=== PATIENT | male | born 1950 | race Caucasian/White ===

== ENCOUNTER → 2019-03-13 13:44 | Outpatient (CLI) | payer MEDICARE, OTHER, SELFPAY ==
[2019-03-13 14:03] LABS: Bacteria Urine None Seen; RBC Urine None Seen (0-5/HPF)
[2019-03-13 14:34] LABS: Add Manual Diff / Slide Review NO; Basophils Absolute Auto 0 /uL (0-100); Basophils Percent Auto 0.4 % (0-2); Eosinophils Absolute Auto 100 /uL (0-450); Eosinophils Percent Auto 1.9 % (2-4); Hematocrit 51.4 % (41-53); Hemoglobin 16.8 g/dL (13.5-17.5); Lymphocytes Absolute Auto 1900 /uL (1100-4500); Lymphocytes Percent Auto 25.4 % (25-40); Mean Corpuscular HGB Conc 32.6 % (30-36); Mean Corpuscular Hemoglobin 31.4 PG (26-34); Mean Corpuscular Volume 96.2 fL (80-100); Monocytes Absolute Auto 700 /uL (0-900); Monocytes Percent Auto 8.7 % (3-14); Neutrophils Absolute Auto 4800 /uL (1500-7000); Neutrophils Percent Auto 63.6 % (50-75); Platelet Count 197 X10^3/uL (150-400); Red Blood Cell Count 5.35 X10^6/uL (4.5-5.9); Red Cell Distribution Width 14.5 % (11.6-14.8); White Blood Cell Count 7.5 X10^3/uL (4.5-11.0)
[2019-03-13 14:52] LABS: Hemoglobin A1C% w Est Avg Glu 5.4 % (4.0-6.0)
[2019-03-13 15:16] LABS: Appearance Urine UA CLEAR; Bilirubin Urine UA NEGATIVE (NEGATIVE); Color Urine UA YELLOW; Glucose Urine UA NEGATIVE (Negative); Ketones Urine UA NEGATIVE (NEGATIVE); Leukocyte Esterase Urine UA NEGATIVE (NEGATIVE); Nitrite Urine UA NEGATIVE (Negative); Occult Blood Urine UA NEGATIVE (Negative); Protein Urine UA NEGATIVE (Negative); Urobilinogen Urine UA 0.2 E.U./dL (0.2)
[2019-03-13 15:37] LABS: Squamous Epithelial Cell Urine 0-1 /HPF (0-5/HPF)
[2019-03-13 15:38] LABS: Culture Indicated Urine Cult Not Indicated; WBC Urine 0-1/HPF (0-5/HPF)
[2019-03-13 15:56] LABS: BUN Creatinine Ratio 17.3 (6-22); Blood Urea Nitrogen 19 mg/dL (9-20); Calcium 9.2 mg/dL (8.4-10.2); Carbon Dioxide 29 mmol/L (22-32); Chloride 97 mmol/L (98-107); Estimated Glomerular Filt Rate > 60.0 mL/min (>60); Glucose 84 mg/dL (80-110); HEMOLYSIS < 15 (0-50); Potassium 4.1 mmol/L (3.4-5.1); Sodium 137 mmol/L (137-145)
== END ==
PROVIDERS: PCP Internal Medicine; Visit Provider Orthopaedic Surgery
DX: Z01.818 Encounter for other preprocedural examination (principal); Z01.812 Encounter for preprocedural laboratory examination; N39.9 Disorder of urinary system, unspecified; Z13.1 Encounter for screening for diabetes mellitus; R73.9 Hyperglycemia, unspecified
CPT/HCPCS: 36415; 80048; 81001; 83036; 85025

== ENCOUNTER 2019-04-28 06:05 | Inpatient (IN) | payer MEDICARE, OTHER, SELFPAY ==
[2019-04-22 09:42] VITALS: BMI 34.8
[2019-04-28] VITALS (12 sets, daily range): BP systolic 108–150; BP diastolic 58–82; PULSE 45–63; RESP 10–18; TEMP 35.3–36.7; O2SAT 96–100; BMI 34.8
--- NOTE | 2019-04-28 | DI.RAD.S_ITS ---
PROCEDURE: XR PELVIS 1-2V INDICATIONS: INNER OP PIC TECHNIQUE: Intra-operative view of the pelvis and hip acquired. COMPARISON: None. FINDINGS: Bones: Intraoperative devices prior to placement of arthroplasty prostheses are in expected positions. No fractures or suspicious bony lesions. Soft tissues: Overlying surgical retractors are present, along with other intraoperative changes. IMPRESSION: Intraoperative device in appropriate position. Dictated by: Nena Sargent M.D. on 04/28/2019 at 11:53 Approved by: Nena Sargent M.D. on 04/28/2019 at 11:53
--- NOTE | 2019-04-28 06:00 | DI.RAD.S_ITS ---
PROCEDURE: XR HIP W PEL IF DONE RT 2V INDICATIONS: POST OPERATIVE RIGHT HIP TECHNIQUE: AP pelvis and lateral view of the right hip acquired. COMPARISON: [facility], [place], XR PELVIS 1-2V, 04/28/2019, 9:15. FINDINGS: Bones: Patient is status post right hip arthroplasty, with hardware components in expected positions. The hip joint appears congruent. The visualized bony structures appear intact. Soft tissues: Overlying postoperative changes are noted. No suspicious soft tissue densities. IMPRESSION: Right hip arthroplasty in anatomic alignment. Dictated by: Nena Sargent M.D. on 04/28/2019 at 14:09 Approved by: Nena Sargent M.D. on 04/28/2019 at 14:10
[2019-04-28] MEDS: PREGABALIN 75 MG CAPSULE PO (06:57)
[2019-04-28] MEDS: ACETAMINOPHEN 325 MG TABLET 975 MG PO ×3 (07:37→20:21)
--- NOTE | 2019-04-28 07:42 | PM.PREOP ---
Pre-operative Note Interval Note History & Physical reviewed/Exam performed by Physician: Yes Changes to H&P: No
--- NOTE | 2019-04-28 07:48 | P.OP_ITS ---
Operative Date/Time/Diagnoses Date of procedure: 04/28/19 Time of procedure: 07:58 Pre-op diagnosis: right hip OA Post-op diagnosis: same Procedure & Clinicians Procedure: Right total hip arthroplasty Same procedure as scheduled: Yes Indications: The patient has had progressively worsening right hip pain with radiographic changes consistent with arthritis. Non-operative management has failed and the patient has requested total hip replacement. The risks, benefits and alternatives to surgery were discussed with the patient prior to proceeding. Risks discussed included, but were not limited to, failure to relieve pain, leg length discrepancy, dislocation, stiffness, infection, nerve damage, deep venous thrombosis, pulmonary embolism, stroke, coma, heart attack, permanent paralysis and , as well as the potential need for eventual revision of the prosthetic. Surgeon: Shyanne Man Structural Shop Helper: Enedina Eli Anesthesia Type: Spinal Operative Notes Findings: Severe right hip arthritis, soft bone, avascular necrosis with some component of collapse Closure Type: primary Specimen(s): none sent Prosthetic devices, grafts, tissues, transplants, or devices: Man [employer] Nephew anthology size 9 high offset, 56 mm cup, 36 x 56 mm liner, 36+ 0 head, Applied: drain(s) Estimated Blood Loss (mL): 250 Blood products transfused: none Procedure in detail: The patient was seen in the pre-operative area, where the patient identified the right hip as the operative site and this was marked with my initials. The patient received pre-operative antibiotics and was taken to the operating room and placed on the operative table in the left lateral decubitus position after satisfactory anesthesia. A night time nanny out was performed. The right leg was prepared from the ankle to the iliac crest with ChloroPrep in the usual fashion and draped through sterile drapes. The hip was approached through an approximately 20 cm incision centered over the greater trochanter and curving gently posteriorly as it went proximally. This was carried sharply to the fascia damon, which was divided and retracted with a self retaining retractor. The trochanteric bursa was excised with care being ta blanca to avoid the sciatic nerve, which was identified and protected throughout the case. The short external rotators were incised and the capsulomuscular flap was raised and tagged for later repair. The hip was dislocated, and a femoral neck osteotomy performed approximately 15 mm above the lesser trochanter. Retractors were placed around the femur. The canal was opened with a box cutting osteotome, followed by a T handled reamer and a lateralizing reamer. The chili pepper broach was then used, followed by sequential broaching until there was good stability of the broach in the femur. Retractors were placed to expose the acetabulum. The labrum and central soft tissues were removed. Reaming was performed initially going up in 2 mm increments, then 1 mm increments until good bite was obtained with an odd sized reamer. The cup 1 mm larger than the last reamer was then inserted using the appropriate anteversion guides. A trial neutral liner was placed. The broach was placed in the canal. A trial head and neck were then placed and the hip relocated and checked for leg length and stability. An intraoperative film confirmed the component position and no evidence of fracture. The patient was stable in the position of sleep, of squatting, and could be put through a range of motion with 45 degrees internal rotation without dislocation. At 90 degrees flexion, internal rotation to 70 was possible before dislocation. This was felt to be satisfactory and the appropriate components were opened, and the trials were removed. The acetabular liner was impacted into position. The final stem was then impacted into the prepared femoral canal. A brief Betadine soak was performed while trialing with head options. The hip was meticulously irrigated with normal saline. Finally the femoral head was impacted onto the stem. The acetabulum was cleared of all material and the hip relocated one final time. The capsulomuscular flap was then repaired to the greater trochanter though an awl hole using the tag sutures. The short external rotators were repaired with a nonabsorbable suture. A deep drain was placed and brought out anteriorly. The fascia damon was closed with Vicryl. The subcutaneous layer was closed with barbed sutures and SteriStrips. An Aquacel Ag dressing was applied and the patient was taken to recovery having tolerated the procedure well. Complications: none Condition: stable Disposition: Acute Care Plan for aftercare: The patient will be maintained on a standard total hip replacement protocol with weight bearing as tolerated and posterior hip precautions. The patient will receive Aspirin and sequential compression devices for DVT prophylaxis. The patient will be discharged home when safe for the home environment.
[2019-04-28] MEDS: VANCOMYCIN 1,000 MG/200 ML PIGGYBACK 200 MG IV ×2 (07:50→20:22)
[2019-04-28] MEDS: CLINDAMYCIN 900 MG/50 ML PIGGYBACK 50 MG IV (08:15)
--- NOTE | 2019-04-28 08:30 | SUR.OPER ---
Lateral on padded OR bed. Gel axillary roll. Arms secured on padded armboard with pillow supporting top arm. Padded hip positioner braces x4 - anterior and posterior chest and pelvis. Additional gel pad used anterior pelvis. Gel pad under bottom leg from knee to foot and secured with tape over sheet.
[2019-04-28] MEDS: BUPIVACAINE 0.25% W/ EPI 30 ML VIAL 60 ML INJ (08:38)
[2019-04-28] MEDS: BUPIVACAINE LIPOSOME 266 MG/20 ML VIAL INJ (08:38)
[2019-04-28] MEDS: POVIDONE-IODINE 15 ML, SODIUM CHLORIDE 0.9% 250 ML TOP (08:40)
[2019-04-28] MEDS: EPINEPHrine 1 MG/ML AMPUL SUBCUT (08:41)
--- NOTE | 2019-04-28 11:19 | PC.NURSE ---
1110 Pt arrived from PACU via Bed. Pt A&A&Ox4, joss a BS. Started LR to SL at 125hr, SCD applied to R foot. Aquacel to R hip inc/surg site intact, hemovac to R hip with s/s drng noted, Pt denies pain. VS wnl, ht rate katya at 45-52. applied warm blanket to Pt.
[2019-04-28] MEDS: LACTATED RINGERS 1,000 ML 125 ML IV ×2 (12:00→19:16)
--- NOTE | 2019-04-28 13:53 | CM.DANOTE ---
Discharge Planning/Care Management DCP: assessment: initiated: Case received this morning and discussed in Team Rounds: Pt was reported to have admitted for a R FRANSISCO/posterior precautions: Surgeon: Dr. Man. He was still in surgery at time of rounds and was expected to arrive to room 219 early afternoon. Pt is a 68 year old male who admitted this morning for surgery as per above. Payer: Medicare and [facility]. Pt is expected to work with PT when stable for same, likely late this afternoon. Pt's pre-op plan is noted: home after a couple of days with spouse Malka's supportive assist. The couple reside in a single level home, one step to [facility], one railing. P: DCP team will follow up tomorrow to meet with pt and do further assessment for d/c issues and options. CM Discharge Assessment Start: 04/28/19 13:52 Freq: Status: Active Protocol: Document 04/28/19 13:52 ITV (Rec: 04/28/19 13:53 ITV [id number]) Discharge Planning Assessment Advance Directives? No Advance Directives on File No History Provided By Medical Record Prior Living Arrangements House Household Members spouse Review Status In Process Pre-Anesthesia Assessment Start: 04/22/19 09:42 Freq: Status: Active Protocol: Document 04/22/19 09:42 CAB (Rec: 04/22/19 10:53 CAB [id number]) Pre-Anesthesia Assessment Patient Information Reviewed Via Phone Assessment Assessment Completed With Patient Diagnostic Results BMP/CMP CBC EKG Urinalysis Other Comment A1c. Labs @ [facility] 03/13/19. EKG Primary Care Provider Lauren Rios Seen Specialist in Last 12 Months Yes Specialist Seen Medical Research Scientist General surgeon Orthopedist Primary Language Tamazight Telescope Operator Required No Height 182.88 cm Weight 116.573 kg Body Mass Index (BMI) 34.8 Hearing Ability Normal Visual Assist Glasses Dentition Type Teeth, Natural Present Dental Implants Barriers to Learning Memory Other Aids No Hx Anesthesia Reactions No Hx Family Anesthesia Reaction No Hx Malignant Hyperthermia No Hx Blood Transfusions No Anesthesia Review Requested Yes: Surgeon requested re: Cardiac Sprinkler Worker No alcohol intake current alcohol intake frequency 0-2 drinks per day Smoking Status Former smoker how long ago did patient quit smoking Quit 2001 Substance Use Type does not use Pain Present Pain Reported Musculoskeletal Symptoms Abnormal Gait Difficulty Walking Joint Pain History of Falling (Recent or History of Yes ) Patient is completely paralyzed or No completely immobile Prosthesis or Orthotic Device Cane Mental Status Oriented to own ability Is patient on oxygen? No Does patient have HINOJOSA/SOB No Hx Sleep Apnea No Currently Taking a Beta Nicky Yes: Atenolol Can You Climb a Flight of Stairs Without Yes SOB Hx Chest Pain Yes: r/t PR's, no current chest pain Hx SOB No Hx Syncope or Dizziness No Anti-Coagulant Therapy Yes: Aspirin 81mg daily Has a Medical Research Scientist Yes: Dr. Lopez - last visit 12/18/18 Cardiac Testing Yes: Lexiscan 10/01/18 Hx Pacemaker/ICD No Pacemaker Rep Required? No Cardiac Clearance Received Yes Comment Cardiac stent x 3 Diet Type At Home Regular Ketogenic Low Carb dysphagia No Bladder Pattern Urgency Urinary Catheter Present No Hx Urinary Self Catheterization No Diabetes No HgbA1C 5.2 Date 03/13/19 Hx Drug Resistant Organism No Presence of External or Internal Medical Yes: Cardiac stent x 3 Devices Have you traveled outside the [facility] in the last 30 days? Comment Tadeo Kunz - travel 03/31/19- Marital Status Lives With spouse Prior Living Arrangements House Number of Floors (Floors) One Floor Number of Stairs To Enter/Railing? 1 step, railing present Support System Friend(s) Spouse Does the Patient Have Assistance After Yes Surgery Patient Discharge Plan Description Return Home Comment Pt advised up to 2 day length of stay per surgeon's office Feels Safe in Current Environment Yes Been Physically Hurt or Threatened By a No Person in Current Environment Do you have thoughts of harming yourself None or others? Are you currently considering suicide? No Do you have a plan to hurt yourself or No Plan others? Do You Have Any Spiritual Beliefs That No May Affect Your HC Choices? Do You Have Any Cultural Practices That No May Affect Your HC Choices? Who Can We Speak to About Patient's Care Family, friends Identifying Code for Release of Patient Declines to issue Information Health Care Proxy/Next of Kin Malka () Health Care Proxy Emergency Contact Name Malka () Emergency Contact Advance Directives? No: Declines further information PAC Instructions Durable medical equipment Medications to take/avoid Nasal antibiotic No ETOH/petroleum product on skin DOS NPO Post-op transportation Pre-surgical wash Sensory aids Sturdy shoes/comfortable clothes Do not bring valuables and remove jewelry
--- NOTE | 2019-04-28 15:15 | PT.IIE ---
Current Diagnoses Unilateral primary osteoarthritis, right hip (04/28/19) Pain in right hip (04/28/19) Surgery Performed Operation Date: 04/28/19 07:45 Actual Procedures p Total Hip Arthroplasty(Right) - Shyanne Man MD Surgical History (Last Updated 04/23/19 @ 12:03 by Lupis Mullins RN) H/O: vasectomy (Acute) History of arthroscopy of both knees (Acute) History of esophagogastroduodenoscopy (EGD) (Acute) Hx of abdominal surgery (Acute) Hx of heart artery stent (Acute) Hx of left knee surgery (Acute ~1970) Hx of tonsillectomy (Acute) Status post colostomy takedown (Acute) Medical History (Last Updated 04/23/19 @ 12:04 by Lupis Mullins RN) Arthritis (Acute) Asbestos exposure (Acute) BPH (benign prostatic hyperplasia) (Acute) CAD (coronary artery disease) (Acute) Cellulitis (Acute) Coma (Acute) Diastolic heart failure (Acute) Easy bruisability (Acute) Former smoker (Acute) GI bleed (Acute) Gout (Acute) HLD (hyperlipidemia) (Acute) HTN (hypertension) (Acute) Lichen planus (Acute) Memory loss due to medical condition (Acute) Myocardial infarction (Acute) Nerve damage (Acute) Osteoarthritis (Acute) Perforated sigmoid colon (Acute) Venous stasis (Acute) Physical Therapy Inpatient Evaluation/Re-Eval M1 PT/OT-IP Prior Functional Status Start: 04/28/19 17:12 Freq: NEEDED Status: Active Protocol: Document 04/28/19 15:15 AB (Rec: 04/28/19 17:29 AB [id number]) Medical Review Prior Functional Status Medical History Reviewed Yes Communication able to make needs known Mobility and Gait pt stated that he is modified indepednet with all mobilities and ambulation using SPC Social History Household Members spouse Living Arrangements House Number of Floors (Floors) One Floor Number of Stairs To Enter/Railing? 1 step to enter Home Environment High Toilet Walk in Shower Built-In Shower Seat Home Equipment Front Wheel Walker Straight Cane Hand Held Shower Grab Bars Near Toilet Grab Bars In Shower Employment Status Retired Additional Social History Comment pt has a high bed M2 PT-IP Current Condition Start: 04/28/19 17:12 Freq: NEEDED Status: Active Protocol: Document 04/28/19 15:15 AB (Rec: 04/28/19 17:29 AB [id number]) Physical Therapy Current Condition Current Condition Evaluation Date 04/28/19 Treatment Diagnosis s/p R FRANSISCO posterior approach; difficulty in walking Onset Date 04/28/19 Precautions Posterior Hip Precautions No Hip Flexion > 90 degrees No Hip Internal Rotation No Hip Adduction Weight Bearing Status Weight Bearing Status Weight Bear as Tolerated M3 PT-IP Subjective Start: 04/28/19 17:12 Freq: NEEDED Status: Active Protocol: Document 04/28/19 15:15 AB (Rec: 04/28/19 17:29 AB [id number]) Subjective Physical Therapy Visit Type Type Initial Evaluation Visit Start Time 15:15 Visit Stop Time 16:17 Total Visit Minutes 62 Number of RADAR SCIENTIST Visits 0 Physical Therapy Visit Comments Patient Comments pt agreeable to do PT Therapy Pain Assessment Pain When Pain Assessed At Rest Pain Present Pain Present Pain Reported Location Right Hip Scale Used pain scale not stated Description Tender Tightness Pain Management Techniques Apply Cold Re-positioning Timing of Activity with Medications M4 PT-IP Mobility and Gait Start: 04/28/19 17:12 Freq: NEEDED Status: Active Protocol: Document 04/28/19 15:15 AB (Rec: 04/28/19 17:29 AB [id number]) PT-Bed Mobility Assessment Supine to Sit Supine to Sit Standby Assistance Sit to Supine Sit to Supine Standby Assistance Scooting Scooting to Edge of Bed Standby Assistance PT-Transfer Assessment Sit to and From Stand Sit to and from Stand Minimal Assistance Equipment Transfer Assistive Device Gait Belt Front Wheeled Walker Orthotic/Prosthetic Devices or Brace: No Transfers Transfer Destination Chair Toilet Transfer Technique pt ambulated using FWW Transfer Ability Level of Assist Minimal Assistance Comments Mobility Comments pt ambualted to the chair using fWW min A. requested to use the toilet once seated on the chair and completed sit to stand from chair min A and cues. pt requires cues to maintain R hip posterior precautions. pt ambulated to the toilet using FWW CGA to min A and was able to maintain standing using FWW SBA. pt ambulated towards the sink using FWW CGA to min a and cues and was able to maintain standing SBA while completing handwashing. pt requested to go back to bed and ambulated to the bed using FWW CGA. adjusted bed's height to simulate pt's high bed at home . pt was able to complete sit to supine SBA. Gait Assessment Gait Gait Assistance Required: Contact Guard Assist Minimum Assistance Distance (Feet) 40 Able to Maintain Weight Bearing Status Yes During Gait Assistive Devices Assistive Device Gait Belt Front Wheeled Walker Orthotic/Prosthetic Devices or Brace: No Gait Deviations General Gait Pattern Antalgic Decreased Stride Length Decreased Feet Clearance Factors Limiting Gait Function Factors Limiting Gait Function Decreased Activity Tolerance Decreased Strength Limited Range of Motion Pain Poor Balance Poor Safety Awareness Comments Gait Comments pt requires cues to maintain R posterior hip precautions. pt can be impulsive. PT-Balance Assessment Sitting Balance and Reactions Static Sitting Balance Ability Good Dynamic Sitting Balance Ability Good Standing Balance and Reactions Static Standing Balance Ability Fair Dynamic Standing Balance Ability Fair Device Used FWW M5 PT-IP Objective Assessments Start: 04/28/19 17:12 Freq: NEEDED Status: Active Protocol: Document 04/28/19 15:15 AB (Rec: 04/28/19 17:29 AB [id number]) Orientation Orientation/Cognition Level of Alertness Alert Orientation Name Age Birthday Month Date Year Day of Week Place Situation Language Function Ability Hard of Hearing Safety Awareness Decreased Safety Awareness Memory Description Short Term Impaired Gross Range of Motion Lower Extremity ROM Assessment Within Functional Limits Strength Lower Extremity Strength Assessment Right Impaired Knee 3+/5 Coordination Assessment Gross Coordination Gross Coordination WNL Sensation Assessment Sensation Gross Sensation WNL Muscle Tone Muscle Tone WNL Yes Other Assessments Other Other Assessments bilateral genu valgum R>L M6 PT-IP Treatment Start: 04/28/19 17:12 Freq: NEEDED Status: Active Protocol: Document 04/28/19 15:15 AB (Rec: 04/28/19 17:29 AB [id number]) Physical Therapy Treatment Exercises Exercises Quad Sets Education Education Provided Precautions Weight Bearing Status Post-Op Packet Safety M7 PT-IP Assessment and Plan Start: 04/28/19 17:12 Freq: NEEDED Status: Active Protocol: Document 04/28/19 15:15 AB (Rec: 04/28/19 17:29 AB [id number]) PT Summary Assessment and Plan Potential Rehabilitation Potential Good Summary Impairments Pain ROM Strength Balance Coordination Sensation Tone Cognition Bed Mobility Transfers Gait Activity Tolerance Assessment Summary pt requiring min A and cues during mobility. pt plans to go home with spouse to assist him. will conduct caregiver training if needed and stair climbing training will be conducted when appropriate. Goals Bed Mobility Goal Independent Transfer Goal Independent Front Wheeled Walker Gait Goal Independent Front Wheel Walker Gait Distance 200 Other Goals up/down 1 step using FWW SBA Days to Meet Goals 5 Frequency of Treatment Frequency Of Treatment Twice a Day Treatment Plan Physical Therapy Treatment Plan Bed Mobility Training Transfer Training Gait Training Therapeutic Exercise Balance Retraining Post Op Education Discharge Planning Hot or Cold Pack Neuromuscular Re-ed Coordination Retraining Manual Therapy Other Recommendations and Next Treatment ambulation, stair climbing Focus Recommendations To Nursing Amount of Assist Needed 1 Person Assist Discharge Recommendations PT Discharge Recommendations Home with Assistance Outpatient PT
[2019-04-28] MEDS: ASPIRIN EC 81 MG TABLET PO (20:22)
[2019-04-28] MEDS: ATENOLOL 50 MG TABLET PO (20:22)
[2019-04-28] MEDS: DOCUSATE 100 MG CAPSULE PO (20:22)
[2019-04-28] MEDS: OXYCODONE IR 5 MG TABLET PO (23:30)
[2019-04-29] VITALS: BP 122/59; PULSE 71; RESP 16; TEMP 37.1; O2SAT 98
[2019-04-29 03:48] VITALS: BP 140/74; PULSE 62; RESP 16; TEMP 36.6; O2SAT 97
[2019-04-29 05:39] LABS: Hematocrit 45.7 % (41-53); Hemoglobin 15.6 g/dL (13.5-17.5)
[2019-04-29] MEDS: PANTOPRAZOLE 20 MG TABLET PO (05:51)
--- NOTE | 2019-04-29 07:24 | PM.DS.1 ---
History of Present Illness Date Patient Seen: 04/29/19 Time Patient Seen: 07:24 Chief complaint: [id number] Narrative: The patient has had progressively worsening right hip pain with radiographic changes consistent with arthritis. Non-operative management has failed and the patient has requested total hip replacement. The risks, benefits and alternatives to surgery were discussed with the patient prior to proceeding. Risks discussed included, but were not limited to, failure to relieve pain, leg length discrepancy, dislocation, stiffness, infection, nerve damage, deep venous thrombosis, pulmonary embolism, stroke, coma, heart attack, permanent paralysis and , as well as the potential need for eventual revision of the prosthetic. Drain removed prior to discharge. Discharge Providers Date of admission: 04/28/19 06:05 Discharge Date: 04/29/19 Primary care physician: Lauren Rios MD Consults: 04/28/19 06:00 Consult to Anesthesiology Routine Comment: Consulting Provider: Anesthesiologist Reason for consultation: Regional block for post operative pain control 04/28/19 11:02 Consult to Discharge Planning Routine Comment: Consult to Physical Therapy Evaluate & Treat Comment: Physician Instructions: post op FRANSISCO protocol Consult to Respiratory Therapy Evaluate & Treat Comment: Physician Instructions: Evaluate and treat Discharge provider: Miriam Diaz PA-C Summary Discharge Diagnosis: s/p right total hip arthroplasty hypertension obesity gout GERD Hospital Course: Fabine was admitted for right total hip arthroplasty with Dr. Man and consented to procedure. Hopsital course was unremarkable. Pain was adequately controlled with Tylenol and oxycodone. He is eating and voiding without difficulty or assistance. ASA for DVT prophylaxis. He has been ambulating with physical therapy throughout his stay. Using a walker to ambulate safely. He is also postoperative appointment scheduled. Exam Vital Signs (past 8 hours): - 04/29/19 00:00 04/29/19 03:48 Temperature 98.8 F 97.9 F Pulse Rate 71 62 Respiratory Rate 16 16 Blood Pressure 122/59 L 140/74 Pulse Oximetry 98 97 Oxygen Delivery Method Room Air Oxygen Flow Rate 0 Narrative Exam Narrative: Patient lying in bed in no acute distress. He is alert and oriented x3. Dressing on right hip is CDI. Hemovac drain in place. Will be removed prior to discharge. Calves are soft, compressible, nontender bilaterally. Sensation intact light touch throughout bilateral lower extremities. He has chronic venous insufficiency of both legs with edema. Objective Labs Result Diagrams: 04/29/19 04:35 Labs: Laboratory Results - last 24 hr 04/29/19 04:35 Hgb 15.6 Hct 45.7 Discharge Plan Discharge Plan Patient Disposition: Home Discharge Med Rec/Prescriptions Prescriptions: Continued aspirin 81 mg Tablet,Delayed Release (Dr/Ec) 81 mg PO QPM RF: 0 allopurinol 300 mg Tablet 300 mg PO DAILY RF: 0 furosemide 20 mg Tablet 20 mg PO QAM RF: 0 testosterone cypionate [Depo-Testosterone] 200 mg/mL Oil 200 mg IM Q4W RF: 0 atenolol 50 mg Tablet 50 mg PO BID RF: 0 tadalafil [Cialis] 10 mg Tablet 10 mg PO DAILY RF: 0 omeprazole 20 mg Tablet,Delayed Release (Dr/Ec) 20 mg PO DAILY RF: 0 lactase 9,000 unit Tablet 9,000 unit PO QAC PRN (Reason: lactose intolerant) RF: 0 Follow up/Referrals: Shyanne Man MD [Physician] - Provider Discharge Instructions Activity: Posterior hip precautions Skin/Wound/Dressing Care Report to your healthcare provider any signs of infection, such as:: chills, fever and increased pain Visit Report/Discharge Packet Instructions: DI for Hip Replacement Discharge Data Primary Care Provider: Lauren Rios Attending Provider: Shyanne Man Admit Date/Time: 04/28/19 06:05 Quality VTE Deep Vein Thrombosis/Pulmonary Embolism Present on Admission: No
[2019-04-29 07:30] VITALS: BP 154/97; PULSE 64; RESP 18; TEMP 36.6; O2SAT 99
[2019-04-29] MEDS: ACETAMINOPHEN 325 MG TABLET 975 MG PO (07:45)
[2019-04-29] MEDS: OXYCODONE IR 5 MG TABLET PO ×2 (07:45→11:04)
[2019-04-29] MEDS: MELOXICAM 7.5 MG TABLET 15 MG PO (08:41)
[2019-04-29] MEDS: ALLOPURINOL 300 MG TABLET PO (08:41)
[2019-04-29] MEDS: ASPIRIN EC 81 MG TABLET PO (08:41)
[2019-04-29] MEDS: DOCUSATE 100 MG CAPSULE PO (08:41)
[2019-04-29] MEDS: ATENOLOL 50 MG TABLET PO (08:41)
[2019-04-29] MEDS: FUROSEMIDE 20 MG TABLET PO (08:41)
--- NOTE | 2019-04-29 10:25 | PT.IPTN ---
Current Diagnoses Unilateral primary osteoarthritis, right hip (04/28/19) Pain in right hip (04/28/19) Surgery Performed Operation Date: 04/28/19 07:45 Actual Procedures p Total Hip Arthroplasty(Right) - Shyanne Man MD Physical Therapy Treatment Note M2 PT-IP Current Condition Start: 04/28/19 17:12 Freq: NEEDED Status: Discharge Protocol: Document 04/28/19 15:15 AB (Rec: 04/28/19 17:29 AB [id number]) Physical Therapy Current Condition Current Condition Evaluation Date 04/28/19 Treatment Diagnosis s/p R FRANSISCO posterior approach; difficulty in walking Onset Date 04/28/19 Precautions Posterior Hip Precautions No Hip Flexion > 90 degrees No Hip Internal Rotation No Hip Adduction Weight Bearing Status Weight Bearing Status Weight Bear as Tolerated M3 PT-IP Subjective Start: 04/28/19 17:12 Freq: NEEDED Status: Discharge Protocol: Document 04/29/19 10:25 GGD (Rec: 04/29/19 12:03 GGD [email or web address]) Subjective Physical Therapy Visit Type Type Treatment Note Visit Start Time 10:00 Visit Stop Time 10:25 Total Visit Minutes 25 Physical Therapy Visit Comments Patient Comments Pt willing to work with therapy. Therapy Pain Assessment Pain When Pain Assessed At Rest Pain Present Pain Present Pain Reported Location Right Hip Scale Used pain scale not stated Description Aching Pain Management Techniques Re-positioning Timing of Activity with Medications M4 PT-IP Mobility and Gait Start: 04/28/19 17:12 Freq: NEEDED Status: Discharge Protocol: Document 04/29/19 10:25 GGD (Rec: 04/29/19 12:03 GGD [email or web address]) PT-Bed Mobility Assessment Supine to Sit Supine to Sit Standby Assistance Sit to Supine Sit to Supine Standby Assistance Scooting Scooting to Edge of Bed Standby Assistance PT-Transfer Assessment Sit to and From Stand Sit to and from Stand Contact Guard Assistance Use of Upper Extremities Equipment Transfer Assistive Device Gait Belt Front Wheeled Walker Orthotic/Prosthetic Devices or Brace: No Transfers Transfer Destination Bed Transfer Ability Level of Assist Contact Guard Assistance Gait Assessment Gait Gait Assistance Required: Contact Guard Assist Distance (Feet) 60 Able to Maintain Weight Bearing Status Yes During Gait Assistive Devices Assistive Device Gait Belt Front Wheeled Walker Orthotic/Prosthetic Devices or Brace: No Gait Deviations General Gait Pattern Antalgic Decreased Stride Length Decreased Feet Clearance Factors Limiting Gait Function Factors Limiting Gait Function Decreased Activity Tolerance Decreased Strength Limited Range of Motion Pain Poor Balance Poor Safety Awareness Stair Climbing Assessment Evaluation Level of Assist On Stairs Contact Guard Assistance Devices Stair Climbing Assistive Devices Front Wheel Walker Technique/Endurance Stair Climbing Direction Ascend and Descend Stair Climbing Technique Step to Step Number of Steps Climbed 1 Stair Climbing Set # Repetitions (reps) 1 M5 PT-IP Objective Assessments Start: 04/28/19 17:12 Freq: NEEDED Status: Discharge Protocol: Document 04/28/19 15:15 AB (Rec: 04/28/19 17:29 AB [id number]) Orientation Orientation/Cognition Level of Alertness Alert Orientation Name Age Birthday Month Date Year Day of Week Place Situation Language Function Ability Hard of Hearing Safety Awareness Decreased Safety Awareness Memory Description Short Term Impaired Gross Range of Motion Lower Extremity ROM Assessment Within Functional Limits Strength Lower Extremity Strength Assessment Right Impaired Knee 3+/5 Coordination Assessment Gross Coordination Gross Coordination WNL Sensation Assessment Sensation Gross Sensation WNL Muscle Tone Muscle Tone WNL Yes Other Assessments Other Other Assessments bilateral genu valgum R>L M6 PT-IP Treatment Start: 04/28/19 17:12 Freq: NEEDED Status: Discharge Protocol: Document 04/29/19 10:25 GGD (Rec: 04/29/19 12:03 GGD [email or web address]) Physical Therapy Treatment Exercises Exercises Ankle Pumps Gluteal Sets Quad Sets Education Education Provided Precautions M7 PT-IP Assessment and Plan Start: 04/28/19 17:12 Freq: NEEDED Status: Discharge Protocol: Document 04/29/19 10:25 GGD (Rec: 04/29/19 12:03 GGD [email or web address]) PT Summary Assessment and Plan Summary Assessment Summary Pt improving with mobility. He need cues for hip precautions. He is safe for home D/C when medically stable. Frequency of Treatment Frequency Of Treatment Twice a Day Treatment Plan Physical Therapy Treatment Plan Bed Mobility Training Transfer Training Gait Training Therapeutic Exercise Balance Retraining Post Op Education Discharge Planning Hot or Cold Pack Neuromuscular Re-ed Coordination Retraining Manual Therapy Other Recommendations and Next Treatment ambulation, stair climbing Focus Recommendations To Nursing Amount of Assist Needed 1 Person Assist Discharge Recommendations PT Discharge Recommendations Home with Assistance Outpatient PT
== END 2019-04-29 11:12 | disposition home or self-care (01) | DRG 470 ==
PROVIDERS: Admitting Provider Orthopaedic Surgery; PCP Internal Medicine; Visit Provider Orthopaedic Surgery
PROC: 0SR90JZ Replacement of Right Hip Joint with Synthetic Substitute, Open Approach (ICD-10-PCS; CPT 27130; principal; 2019-04-28 07:45)
DX: M16.11 Unilateral primary osteoarthritis, right hip (principal); I50.32 Chronic diastolic (congestive) heart failure; M87.851 Other osteonecrosis, right femur; I51.9 Heart disease, unspecified; I11.0 Hypertensive heart disease with heart failure; E78.5 Hyperlipidemia, unspecified; I87.8 Other specified disorders of veins; M10.9 Gout, unspecified; Z87.891 Personal history of nicotine dependence
CPT/HCPCS: 36415; 72170; 73502; 85014; 85018; 97116; 97162; 97530; C1776; C9290; J0171; J2250; J2704; J3010

== ENCOUNTER → 2020-04-25 15:16 | Outpatient (CLI) | payer MEDICARE, OTHER, SELFPAY ==
[2019-04-28 11:24] VITALS: BMI 34.8
== END ==
PROVIDERS: PCP Internal Medicine; Referring Provider Orthopaedic Surgery; Visit Provider Orthopaedic Surgery
DX: Z01.818 Encounter for other preprocedural examination (principal)
CPT/HCPCS: 93005

== ENCOUNTER → 2020-05-21 14:20 | Outpatient (CLI) | payer MEDICARE, OTHER, SELFPAY ==
[2019-04-28 11:24] VITALS: BMI 34.8
[2020-05-22 23:33] LABS: COVID19 Sendout Not Detected (Not Detect)
== END ==
PROVIDERS: PCP Internal Medicine; Visit Provider Physician Assistant
DX: Z01.812 Encounter for preprocedural laboratory examination (principal)
CPT/HCPCS: 87635

== ENCOUNTER 2020-05-24 08:31 | Inpatient (IN) | payer MEDICARE, OTHER, SELFPAY ==
[2019-04-28 11:24] VITALS: BMI 34.8
[2020-05-17 09:57] VITALS: BMI 37.0
[2020-05-24] VITALS (15 sets, daily range): BP systolic 124–169; BP diastolic 72–94; PULSE 49–62; RESP 10–19; TEMP 35.8–36.6; O2SAT 94–98; BMI 36.5
[2020-05-24] MEDS: LACTATED RINGERS 1,000 ML 42 ML IV (09:26)
[2020-05-24] MEDS: ACETAMINOPHEN 325 MG TABLET 975 MG PO (09:26)
[2020-05-24] MEDS: PREGABALIN 75 MG CAPSULE PO (09:27)
[2020-05-24] MEDS: MELOXICAM 7.5 MG TABLET 15 MG PO (09:27)
[2020-05-24] MEDS: VANCOMYCIN 1,000 MG/200 ML PIGGYBACK 200 MG IV (09:30)
[2020-05-24] MEDS: CEFAZOLIN 2 GM/100 ML FROZ.PIGGY IV ×2 (10:55→19:51)
--- NOTE | 2020-05-24 11:00 | PM.PREOP ---
Pre-operative Note COVID-19 COVID-19 status: Negative Result date/Date tested (Pos, Neg/Pending): 05/21/20 (neg) Interval Note History & Physical reviewed/Exam performed by Physician: Yes Changes to H&P: No
--- NOTE | 2020-05-24 11:31 | SUR.OPER ---
Supine on padded OR bed. Pillow under head, arms secured on padded armboards <90 degree abduction. Safety belt across torso. Non-operative leg secured with tape over blanket over lower leg. Operative leg secured in [employer] positioner. Foam padded brace at thigh of operative leg.
[2020-05-24] MEDS: TRANEXAMIC ACID 1,000 MG VIAL 1000 MG INJ ×2 (11:43→13:08)
[2020-05-24] MEDS: BUPIVACAINE 0.25% W/ EPI 30 ML VIAL 60 ML INJ (11:43)
[2020-05-24] MEDS: BUPIVACAINE LIPOSOME 266 MG/20 ML VIAL INJ (11:44)
--- NOTE | 2020-05-24 13:51 | DI.RAD.S_ITS ---
PROCEDURE: XR KNEE RT 1TO2V INDICATIONS: POST OPERATIVE RIGHT KNEE TECHNIQUE: 2 view(s) of the knee acquired. COMPARISON: [facility] [place] [place], XR KNEE ARTHRITIC SERIES BI, 04/25/2020, 11:29. FINDINGS: Bones: Patient is status post knee joint arthroplasty. Hardware components are in expected positions. Visualized bony structures are intact. Soft tissues: Overlying postoperative changes are noted. Posterior medial soft tissue heterotopic calcifications. IMPRESSION: Expected postsurgical change for right knee arthroplasty. Dictated by: Sakina Dominguez MD, PhD on 05/24/2020 at 18:42 Approved by: Sakina Dominguez MD, PhD on 05/24/2020 at 18:43
--- NOTE | 2020-05-24 13:51 | P.OP_ITS ---
Operative Date/Time/Diagnoses Date of procedure: 05/24/20 Time of procedure: 13:51 Pre-op diagnosis: Right knee OA Post-op diagnosis: same Procedure & Clinicians Procedure: Right total knee arthroplasty Same procedure as scheduled: Yes Indications: The patient has had progressively worsening right knee pain with radiographic changes consistent with arthritis. Non-operative management has failed and the patient has requested total knee replacement. The risks, benefits and alternatives to surgery were discussed with the patient prior to proceeding. Risks discussed included, but were not limited to, failure to relieve pain, stiffness, infection, nerve damage, deep venous thrombosis, pulmonary embolism, stroke, coma, heart attack, permanent paralysis and , as well as the potential need for eventual revision of the prosthetic. Surgeon: Shyanne Man Surgical First Assistant: Roseanna Stewart Anesthesia Type: General and Spinal Operative Notes Findings: Severe right knee lateral compartment arthritis with severe valgus deformity, good balance and adequate patellar tracking Closure Type: primary Specimen(s): none sent Prosthetic devices, grafts, tissues, transplants, or devices: Man [employer] Nephew Journey BCS 2 38 mm oval patella, size 7 right femur, size 6 tibia, +10 poly Applied: drain(s) Estimated Blood Loss (mL): 200 Blood products transfused: none Tourniquet time (min): 100 Procedure in detail: The patient was seen in the pre-operative area, where the patient identified the right knee as the operative site and this was marked with my initials. The patient received pre-operative antibiotics, and was taken to the operating room and placed on the operative table in the supine position. After satisfactory anesthesia, a time clock repairer out was performed. The right leg was encircled with a tourniquet about the proximal thigh, and the leg was prepared from the toes to the tourniquet with ChloroPrep in the usual fashion and draped through sterile drapes. The leg was elevated and exsanguinated with Eschmark bandage and the tourniquet inflated to [250] mmHg pressure. The knee was approached through an approximately 18 cm incision centered over the patella and carried into the knee through a medial parapatellar arthrotomy. A portion of the medial and lateral meniscus was resected. Soft tissue was carefully mobilized around the patella the patella was measured with a caliper. Bone was resected from the patella and the patellar height was reconstituted with up an appropriate sized patellar component. A cover was then placed on the patella. A small amount of additional medial and lateral meniscus was resected. The distal femur was cut at 5?. A [+2] cut was used. It looked like an appropriate distal femoral cut and the cut was made without difficulty. An extramedullary guide was used for the tibial cut. 8 mm was resected off the least affected side.The tibia was prepared. The rotation was assessed. The patient was placed in extension residual medial and lateral meniscus as well as any residual bone was carefully resected. 2 mm additional tibia was resected. Hemostasis was achieved especially posteriorly. Additional local was injected into the posterior capsule. The extension gap was assessed and additional releases for gap balancing were performed as necessary. It was checked with the gap on air director. The femoral component was trial was placed and the notch was finished. We checked the rotation both with clinical landmarks as well as the gap on air director and looking at 5? of external rotation on the measured resection guide. Used a combination of the gap on air director and clinical landmarks. The rotation was assessed and the appropriate size femoral guide was placed on the distal femur and finishing cuts were made. There was no evidence of notching. The anterior, posterior and chamfer cuts were then made. The posterior osteophytes and soft tissues were then removed. The posterior capsule was injected with part of a mixture of 60 ml 0.25% Marcaine mixed with 20 ml Exparel for post operative pain control. The remainder of this mixture was injected into the capsule and subcutaneous tissues during cement curing.l tibial and femoral components were then placed and the knee placed through a range of motion. Range of motion was [0-130], with good stability throughout the range. The patellar tracking was specifically checked a small amount of additional lateral release was performed. The trials were then removed, and the tibia was finished. The bone was prepared with pulsatile lavage, and dried with a sponge. Cement was applied and the final prosthetics placed. Excess cement was removed during and after cement curing. A brief Betadine soak was performed. After confirming there was no extruded cement posteriorly, the final tibial insert was placed. The knee was copiously irrigated and the tourniquet deflated. Hemostasis was obtained with the Bovie cautery. A drain was placed and brought out superolaterally. The capsule was closed with interrupted nonabsorbable suture. The subcutaneous layer was closed with barbed sutures, and the skin with a running 3-0 V-Lock suture and Surgical glue. An Aquacel Ag dressing was applied and the patient was taken to recovery having tolerated the procedure well. Complications: none Post-operative Condition: stable Disposition: Acute Care Plan for aftercare: The patient will be maintained on a standard total knee replacement protocol with weight bearing as tolerated. The patient will receive aspirin and sequential compression devices for DVT prophylaxis. The patient will be discharged home when safe for the home environment.
[2020-05-24] MEDS: ONDANSETRON 4 MG/2 ML INJ IV ×2 (14:03→17:42)
--- NOTE | 2020-05-24 15:34 | PC.NURSE ---
Day Shift- Report rec'd from PRODUCT OPERATIONS ASSOCIATE at 1438. Pt arrived to unit at 1450 via bed into room 220. Pt oriented to call light, bed alarm on. Calf SCD's to BLE. Right knee aquacel dressing CDI with nisha wrap. Hemovac in place clamped at this time and per PRODUCT OPERATIONS ASSOCIATE plan to unclamp at 1600, Evening RN aware. PPP. Pt has edema to BLE, RLE>LLE. Pt states that he normally has edema to RLE that is normally more than compared to LLE.
[2020-05-24] MEDS: LACTATED RINGERS 1,000 ML 100 ML IV (15:50)
[2020-05-24] MEDS: IBUPROFEN 400 MG TABLET PO (17:42)
[2020-05-24] MEDS: ACETAMINOPHEN 325 MG TABLET 650 MG PO ×2 (17:42→22:21)
[2020-05-24] MEDS: diphenhydrAMINE 50 MG/ML VIAL 25 MG IV (19:55)
[2020-05-24] MEDS: ASPIRIN EC 81 MG TABLET PO (22:21)
[2020-05-24] MEDS: DOCUSATE 100 MG CAPSULE PO (22:21)
[2020-05-25] VITALS: BP 135/75; PULSE 48; RESP 16; TEMP 36.2; O2SAT 96
--- NOTE | 2020-05-25 | PC.NURSE ---
Post-op notes: VS have been stable, RA oxygen 98%, continuous pulse ox in place tonight. Denies any pain to extremities, or to operative R knee. Denies numbness to RLE, does report vague residual numbness to his groin. CMS intact, good mvmt of RLE, can lift it in & out of bed on his own. Drsg remains CDI, ice pack in place. Hemovac unclamped at 1600, had 250 ml total sero-sang drainage in 8 hours. Reported vague nausea at beginning of shift, IV Zofran given. Tolerated dinner with no nausea. Dr Man here to see patient, ordered me to have patient get up and walk and to make sure he voids. Around 1929 I assisted him to ambulate around bed and to bathroom where he sat on toilet for about approx 10 minutes. He could not void. Bladder scanned = 427 ml. I talked to him about standing order for in & out catheter. He refused asking I want to wait & drink 2 more glasses & try again in a while. With activity he is somewhat impulsive, for example while standing at the side of the bed at one point he flexed RLE and stuck leg out behind him, bending at the waist. Safety & fall precautions/teaching given, Pt arguing sometimes with nurse at times. Requesting walker left by the bed. During ambulation he moved walker away from himself too early, telling me to not hold on to the gait belt, needs some reminders/cues for appropriate walker use/safety. Refuses for nurse to stay with him when he is in bathroom, stating he is shy. Nurse of course gave this patient privacy per his request, he did use call button appropriately when he was ready to ambulate back to bed. At [address] Man, who told me to give him 20 more minutes and then to do in & out cath. I talked to patient about this & he denied any urge to void, saying just do it now. Float RN in to do in & out cath, with 830 ml urine output. Pt instructed to attempt void in 2-3 hours, he agrees to this plan. Full patient report given to Rach GARCIAS RN.
[2020-05-25] MEDS: CEFAZOLIN 2 GM/100 ML FROZ.PIGGY IV (02:55)
[2020-05-25 03:42] VITALS: BP 137/87; PULSE 45; RESP 18; TEMP 36.1; O2SAT 97
[2020-05-25] MEDS: PANTOPRAZOLE 20 MG TABLET PO (05:13)
[2020-05-25] MEDS: IBUPROFEN 400 MG TABLET PO ×4 (05:13→17:23)
[2020-05-25 06:12] LABS: Hematocrit 50.6 % (41-53); Hemoglobin 17.1 g/dL (13.5-17.5)
[2020-05-25 08:00] VITALS: BP 130/67; PULSE 48; RESP 16; TEMP 35.5; O2SAT 98
[2020-05-25] MEDS: ACETAMINOPHEN 325 MG TABLET 650 MG PO ×2 (08:14→15:18)
[2020-05-25] MEDS: TAMSULOSIN 0.4 MG CAPSULE PO (08:14)
[2020-05-25] MEDS: ASPIRIN EC 81 MG TABLET PO (08:14)
[2020-05-25] MEDS: DOCUSATE 100 MG CAPSULE PO (08:15)
[2020-05-25] MEDS: EZETIMIBE 10 MG TABLET PO (08:39)
[2020-05-25] MEDS: allopurinoL 300 MG TABLET 150 MG PO (08:39)
--- NOTE | 2020-05-25 10:37 | PT.IIE ---
Current Diagnoses Unilateral primary osteoarthritis, right knee (05/24/20) Surgery Performed Operation Date: 05/24/20 10:45 Actual Procedures p Total Knee Arthroplasty(Right) - Shyanne Man MD Surgical History (Last Updated 05/17/20 @ 10:01 by Lupis Mullins RN) H/O: vasectomy (Acute) History of arthroscopy of both knees (Acute) History of esophagogastroduodenoscopy (EGD) (Acute) History of total right hip arthroplasty (Acute 04/28/19) Hx of abdominal surgery (Acute) Hx of heart artery stent (Acute) Hx of left knee surgery (Acute ~1969) Hx of tonsillectomy (Acute) Status post colostomy takedown (Acute) Medical History (Last Updated 04/23/19 @ 12:04 by Lupis Mullins RN) Arthritis (Acute) Asbestos exposure (Acute) BPH (benign prostatic hyperplasia) (Acute) CAD (coronary artery disease) (Acute) Cellulitis (Acute) Coma (Acute) Diastolic heart failure (Acute) Easy bruisability (Acute) Former smoker (Acute) GI bleed (Acute) Gout (Acute) HLD (hyperlipidemia) (Acute) HTN (hypertension) (Acute) Lichen planus (Acute) Memory loss due to medical condition (Acute) Myocardial infarction (Acute) Nerve damage (Acute) Osteoarthritis (Acute) Perforated sigmoid colon (Acute) Venous stasis (Acute) Physical Therapy Inpatient Evaluation/Re-Eval M1 PT/OT-IP Prior Functional Status Start: 05/25/20 08:36 Freq: NEEDED Status: Active Protocol: Document 05/25/20 10:19 AW (Rec: 05/25/20 10:36 AW [email or web address]) Medical Review Prior Functional Status Medical History Reviewed Yes Communication WNL Mobility and Gait Pt reports independent household ambulation. He was also able to complete grocery shopping using a cart. He had R FRANSISCO 1 year ago and recovered well. He has chronic B LE edema (R > L) and uses compression socks to manage same. Activities of Daily Living and IADL's IND including driving Prior Functional Level (Other details) Pt fell from his tall bed after FRANSISCO last year. Social History Household Members spouse Living Arrangements House Number of Floors (Floors) One Floor Number of Stairs To Enter/Railing? threshhold step to enter Home Environment High Toilet,Walk in Shower, Built-In Shower Seat Home Equipment Front Wheel Walker,Straight Cane,Hand Held Shower,Long Handled Shoe Horn,Production Solderer,Sock Aid,Grab Bars Near Toilet, Grab Bars In Shower Employment Status Retired Additional Social History Comment Pt lives with his , Malka, who works [employer] 13 catapult operator but is planning to be home to assist for two weeks. Pt has a tall bed. He tends to sleep part of the night in the bed and the .rest of the night in a recliner M2 PT-IP Current Condition Start: 05/25/20 08:36 Freq: NEEDED Status: Active Protocol: Document 05/25/20 10:19 AW (Rec: 05/25/20 10:36 AW [email or web address]) Physical Therapy Current Condition Weight Bearing Status Weight Bearing Status Weight Bear as Tolerated M3 PT-IP Subjective Start: 05/25/20 08:36 Freq: NEEDED Status: Active Protocol: Document 05/25/20 10:19 AW (Rec: 05/25/20 10:36 AW [email or web address]) Subjective Physical Therapy Visit Type Type Initial Evaluation Visit Start Time 09:29 Visit Stop Time 10:01 Total Visit Minutes 32 Notes Pt has been unable to void independently Physical Therapy Visit Comments Patient Comments Pt is willing to work with PT Patient Goals To return home with spouse assisting Therapy Pain Assessment Pain When Pain Assessed During Mobility Pain Present Pain Present Denied Pain M4 PT-IP Mobility and Gait Start: 05/25/20 08:36 Freq: NEEDED Status: Active Protocol: Document 05/25/20 10:19 AW (Rec: 05/25/20 10:36 AW [email or web address]) PT-Bed Mobility Assessment Supine to Sit Supine to Sit Standby Assistance Sit to Supine Sit to Supine Standby Assistance Scooting Scooting to Edge of Bed Standby Assistance PT-Transfer Assessment Sit to and From Stand Sit to and from Stand Standby Assistance,Use of Upper Extremities Equipment Transfer Assistive Device Gait Belt,Front Wheeled Walker Transfers Transfer Destination Chair Transfer Ability Level of Assist Standby Assistance Comments Mobility Comments With HOB flat, pt demonstrated supine <> sit SBA with pt able to perform straight leg raise to get in and out of bed . He sat EOB without UE support and stood impulsively before FWW was available. Educated pt extensively on need for assistive device, but pt repeated frequently that he would end up doing what he wanted to do. He ambulated in the room and in the galeano for a total of 300 feet, taking one seated rest break at 200 feet . Gait was notable for ipsilateral lean in stance phase. Gait speed and step length were WNL but foot clearance was poor bilaterally . At seated rest break and again upon return to the room, pt left the FWW to the side before attempting to sit in spite of education to keep the walker with him during turns and transfers. Pt was positioned on the chair with call light and all needs within reach. Pt would not verbally agree to use the call light for mobility needs. I' ll be back in the bed before you even know it. In this PT' s opinion, the pt would simply remove a chair alarm if employed. RN was notified and door was left open for line of sight monitoring. Gait Assessment Gait Gait Assistance Required: Standby Assistance Distance (Feet) 200 Able to Maintain Weight Bearing Status Yes During Gait Assistive Devices Assistive Device Gait Belt,Front Wheeled Walker Gait Deviations General Gait Pattern Antalgic,Decreased Feet Clearance,Flexed Trunk,Lateral Trunk Lean Factors Limiting Gait Function Factors Limiting Gait Function Decreased Activity Tolerance, Decreased Sensation,Decreased Strength,Difficulty Following Directions,Limited Range of Motion,Poor Safety Awareness Comments Gait Comments See mobility comments for details. Stair Climbing Assessment Comments Stair Climbing Comments Not assessed. Threshhold only at home. PT-Balance Assessment Sitting Balance and Reactions Static Sitting Balance Ability Normal Dynamic Sitting Balance Ability Normal Standing Balance and Reactions Static Standing Balance Ability Good Dynamic Standing Balance Ability Good M5 PT-IP Objective Assessments Start: 05/25/20 08:36 Freq: NEEDED Status: Active Protocol: Document 05/25/20 10:19 AW (Rec: 05/25/20 10:36 [email or web address]) Orientation Orientation/Cognition Level of Alertness Alert Orientation Name,Day of Week,Place, Situation Language Function Ability No Deficits Noted Safety Awareness Decreased Safety Awareness Memory Description No Deficits Noted Gross Range of Motion Lower Extremity ROM Assessment Right Impaired Strength Lower Extremity Strength Assessment Right Impaired Comments Strength Comments L LE grossly 5/5 Coordination Assessment Gross Coordination Gross Coordination WNL Sensation Assessment Sensation Gross Sensation Right LE Impaired,Left LE Impaired Comments Sensation Comments Chronic neuropathy affecting sensation to bilateral feet and hands M6 PT-IP Treatment Start: 05/25/20 08:36 Freq: NEEDED Status: Active Protocol: Document 07/22/20 10:19 AW (Rec: 05/25/20 10:36 AW [email or web address]) Physical Therapy Treatment Exercises Exercises Ankle Pumps,Quad Sets,Heel Slides,Passive Knee Extension Hang Education Education Provided Precautions,Weight Bearing Status,Post-Op Packet,Safety Other Treatments Other Treatment Performed Provided education on role of PT, plan of care, weightbearing status, and safe use of FWW. Counseled pt to continue using FWW at least until evaluation by outpatient PT due to increased fall risk . M7 PT-IP Assessment and Plan Start: 05/25/20 08:36 Freq: NEEDED Status: Active Protocol: Document 05/25/20 10:19 AW (Rec: 05/25/20 10:36 AW [email or web address]) PT Summary Assessment and Plan Potential Rehabilitation Potential Good Status of Condition at Evaluation Stable Summary Impairments Pain,ROM,Strength,Balance, Sensation,Bed Mobility, Transfers,Gait,Activity Tolerance Assessment Summary Fabien is a 69 yo man seen for PT evaluation on POD1 following R TKA. He is independent in all regards at baseline. He has history of R FRANSISCO with satisfactory recovery. On evaluation, pt presents as impulsive but required no more than SBA for all mobilities. He would benefit from an additional acute PT session to reinforce safety and rationale for use of FWW if he remains in the hospital. PT anticipates he will be safe for discharge with spouse assist and outpatient PT once medically cleared. Goals Bed Mobility Goal Independent Transfer Goal Independent,Front Wheeled Walker Gait Goal Independent,Front Wheel Walker Gait Distance 300 Days to Meet Goals 2 Frequency of Treatment Frequency Of Treatment Twice a Day Treatment Plan Physical Therapy Treatment Plan Bed Mobility Training,Transfer Training,Gait Training, Therapeutic Exercise,Balance Retraining,Post Op Education, Discharge Planning,Hot or Cold Pack Recommendations To Nursing Amount of Assist Needed Standby Assistance Discharge Recommendations PT Discharge Recommendations Home with Assistance, Outpatient PT Transportation Needs at Discharge Private Vehicle
--- NOTE | 2020-05-25 11:31 | CM.DANOTE ---
DCP: Case received, EMR reviewed and met with patient. Introduced self and role. Was able to meet with patient and obtain information regarding his baseline activity level prior to having surgery. DCP assessment completed with information currently available. Patient is a 69 year old male who admitted yesterday morning to the care of the orthopedic team. PCP: Dr. Rios. Payer: confirmed: Medicare/[facility]. Patient came to the hospital via private vehicle for a surgical procedure. He had right total knee arthroplasty. Patient has history of chronic right knee discomfort. He also mentioned that he had a recent hip replacement. Met with patient in his room. He is alert and oriented, , Malka, was also present in his room. They both reside in [facility]. He is retired, and independent at baseline. He indicated that he already has outpatient P.T. set up with [facility] [place] P: DCP to continue to follow. Patient should be able to be discharged home when he is medically stable, and is cleared by P.T. Paola Noonan RN/Radio Survey Worker
[2020-05-25 11:49] VITALS: BP 121/62; PULSE 49; RESP 18; TEMP 35.9; O2SAT 94
[2020-05-25] MEDS: FUROSEMIDE 20 MG TABLET PO (15:18)
[2020-05-25 15:30] VITALS: BP 130/53; PULSE 64; RESP 18; TEMP 36.5; O2SAT 94
--- NOTE | 2020-05-25 15:35 | PT.IPTN ---
Current Diagnoses Unilateral primary osteoarthritis, right knee (05/24/20) Surgery Performed Operation Date: 05/24/20 10:45 Actual Procedures p Total Knee Arthroplasty(Right) - Shyanne Man MD Physical Therapy Treatment Note M2 PT-IP Current Condition Start: 05/25/20 08:36 Freq: NEEDED Status: Active Protocol: Document 05/25/20 10:19 AW (Rec: 05/25/20 10:36 AW [email or web address]) Physical Therapy Current Condition Weight Bearing Status Weight Bearing Status Weight Bear as Tolerated M3 PT-IP Subjective Start: 05/25/20 08:36 Freq: NEEDED Status: Active Protocol: Document 05/25/20 15:19 TP (Rec: 05/25/20 17:12 TP [email or web address]) Subjective Physical Therapy Visit Type Type Treatment Note Visit Start Time 15:19 Visit Stop Time 15:35 Total Visit Minutes 16 Notes Reina ONLINE CONTENT DEVELOPER and Caren ONLINE CONTENT DEVELOPER student present for tx. Pt has been unable to void independently. Number of ONLINE CONTENT DEVELOPER Visits 1 Physical Therapy Visit Comments Patient Comments Pt is willing to work with PT. Patient Goals To return home with spouse assisting Therapy Pain Assessment Pain When Pain Assessed At Rest Pain Present Pain Present Denied Pain M4 PT-IP Mobility and Gait Start: 05/25/20 08:36 Freq: NEEDED Status: Active Protocol: Document 05/25/20 15:19 TP (Rec: 05/25/20 17:12 TP [email or web address]) PT-Bed Mobility Assessment Supine to Sit Supine to Sit Standby Assistance Sit to Supine Sit to Supine Standby Assistance Scooting Scooting to Edge of Bed Standby Assistance PT-Transfer Assessment Sit to and From Stand Sit to and from Stand Standby Assistance,Use of Upper Extremities Equipment Transfer Assistive Device Gait Belt,Front Wheeled Walker Transfers Transfer Destination Bed Transfer Technique pt ambulated using fWW Transfer Ability Level of Assist Standby Assistance Comments Mobility Comments Pt reclined in bed upon arrival. Swelling present in R LE. Nurse administered oral analgesics as tx began. Pt performed therapeutic exercise to improve strength and circulation, ankle pumps x10, R heel slides x5. R knee flexion approximately 80 degrees. Supine<>sit SBA. Sit< >stand FWW SBA. Pt moves quickly and impulsively. Ambulation in hallway approximately 300ft (50' with FWW CGA, 250' with SPC CGA) with verbal cues to slow pacing. Pt used reciprocal gait pattern but was inconsistent with SPC placement particularly during conversation CGA. R heel strike and quad facilitation present. Pt returned to room and stood at EOB (L). During dynamic standing, pt experienced LOB when repositioning LE, using a hip and step strategy to gain control. Stand<>sit, sit<> supine SBA. Pt reclined in bed with fresh ice placed on R knee, call light in reach, and all other needs within reach. Gait Assessment Gait Gait Assistance Required: Contact Guard Assist,1 Person Assist Distance (Feet) 300 Able to Maintain Weight Bearing Status Yes During Gait Assistive Devices Assistive Device Gait Belt,Front Wheeled Walker Gait Deviations General Gait Pattern Antalgic,Decreased Feet Clearance,Flexed Trunk,Lateral Trunk Lean Factors Limiting Gait Function Factors Limiting Gait Function Decreased Activity Tolerance, Decreased Sensation,Decreased Strength,Difficulty Following Directions,Limited Range of Motion,Poor Safety Awareness Comments Gait Comments See mobility comments. Stair Climbing Assessment Comments Stair Climbing Comments Not assessed. Threshhold only at home. PT-Balance Assessment Sitting Balance and Reactions Static Sitting Balance Ability Normal Dynamic Sitting Balance Ability Normal Standing Balance and Reactions Static Standing Balance Ability Good Dynamic Standing Balance Ability Fair M5 PT-IP Objective Assessments Start: 05/25/20 08:36 Freq: NEEDED Status: Active Protocol: Document 05/25/20 10:19 AW (Rec: 05/25/20 10:36 AW [email or web address]) Orientation Orientation/Cognition Level of Alertness Alert Orientation Name,Day of Week,Place, Situation Language Function Ability No Deficits Noted Safety Awareness Decreased Safety Awareness Memory Description No Deficits Noted Gross Range of Motion Lower Extremity ROM Assessment Right Impaired Strength Lower Extremity Strength Assessment Right Impaired Comments Strength Comments L LE grossly 5/5 Coordination Assessment Gross Coordination Gross Coordination WNL Sensation Assessment Sensation Gross Sensation Right LE Impaired,Left LE Impaired Comments Sensation Comments Chronic neuropathy affecting sensation to bilateral feet and hands M6 PT-IP Treatment Start: 05/25/20 08:36 Freq: NEEDED Status: Active Protocol: Document 05/25/20 15:19 TP (Rec: 05/25/20 17:12 TP [email or web address]) Physical Therapy Treatment Exercises Exercises Ankle Pumps,Heel Slides Education Education Provided Precautions,Weight Bearing Status,Post-Op Packet,Safety Other Treatments Other Treatment Performed Provided education on safe use of FWW and SPC slower pacing during gait. M7 PT-IP Assessment and Plan Start: 05/25/20 08:36 Freq: NEEDED Status: Active Protocol: Document 05/25/20 15:19 TP (Rec: 05/25/20 17:12 TP [email or web address]) PT Summary Assessment and Plan Potential Rehabilitation Potential Good Status of Condition at Evaluation Stable Summary Impairments Pain,ROM,Strength,Balance, Sensation,Bed Mobility, Transfers,Gait,Activity Tolerance Assessment Summary Pt has met gait goal of ambulating 300'. Continues to display impulsivity, requiring reminders for safe use of FWW . R knee shows good AROM during heel slide and gait, approximately 80 degrees. Pt requires further PT for safe ambulation and to increase strength and endurance for increased activity. Pt is ready for discharge at this time with assistance at home when cleared medically. Recommendation for outpatient PT. Goals Bed Mobility Goal Independent Transfer Goal Independent,Front Wheeled Walker Gait Goal Independent,Front Wheel Walker Gait Distance 300 Days to Meet Goals 2 Frequency of Treatment Frequency Of Treatment Twice a Day Treatment Plan Physical Therapy Treatment Plan Bed Mobility Training,Transfer Training,Gait Training, Therapeutic Exercise,Balance Retraining,Post Op Education, Discharge Planning,Hot or Cold Pack Recommendations To Nursing Amount of Assist Needed Standby Assistance Discharge Recommendations PT Discharge Recommendations Home with Assistance, Outpatient PT Transportation Needs at Discharge Private Vehicle
--- NOTE | 2020-05-25 18:15 | PC.NURSE ---
Notified Dr Man per her instructions of patient's void total (825 ml on eves) and post void residual (567ml).
--- NOTE | 2020-05-25 18:51 | PC.NURSE ---
Discharge note: Patient left via wheelchair to POV with . Education given with printed copy, pt acknowledged teaching. IV removed, aquacell dressing intact. Rx for oxycodone given to spouse, all other Rxs called into pharmacy of choice. Discharged at 1845.
--- NOTE | 2020-05-25 20:11 | P.PN_ITS ---
Subjective Subjective Date Patient Seen: 05/25/20 Time Patient Seen: 08:01 Interval history: Fabien notes he has fairly mild pain into his right knee. He did have significant problems voiding overnight and had a catheterization several times. He denies any nausea or difficulty passing gas. Exam Vital Signs (past 8 hours): - 05/25/20 15:30 Temperature 97.7 F Pulse Rate 64 Respiratory Rate 18 Blood Pressure 130/53 L Pulse Oximetry 94 Oxygen Delivery Method Room Air Oxygen Flow Rate 0 Narrative Exam Narrative: HEENT is benign, his abdomen is slightly distended but he has positive bowel sounds, he can easily do an active straight leg raise on the right leg his calf is soft distally his incisions in and dressing are intact. Neurologically intact distally. Objective Labs Result Diagrams: 05/25/20 06:00 Labs: Laboratory Results - last 24 hr 05/25/20 06:00 Hgb 17.1 Hct 50.6 Assessment & Plan Assessment & Plan narrative: Urinary retention secondary to a spinal after a right total knee arthroplasty. He has been straight catheterization several times the plan for today was to allow him to attempt to avoid. He had some difficulty initially but then was able to spontaneously void up to 350 mm of urine on several occasions prior to discharge. He was started on Flomax in the morning. He does take Cialis on a regular basis. I spoke to Urology and he stated that there was no strong contraindication to a combination of Flomax and Cialis and the plan is to discharge him to home with a combination for short dur ation. He was doing extremely well from his knee standpoint at the time of discharge.
--- NOTE | 2020-05-25 23:19 | PC.NURSE ---
Ortho: Po pain meds effective. Tolerates diet w/out problems. Still having voiding diff and md made aware. Flomax started. Pt was starting to be able to void by the end of the shift. Pt is also on cialis at home and has been instructed on side effects, he should not take cialis and flomax together. Heart rate in the 40's, atenolol held and md made aware. Pt instructed if he should go home he needs to check his pulse daily. Call his md to get a parameter as to when he should hold atenolol. Discussed hospital parameters but his pcp may have a certain criteria for him.
== END 2020-05-25 18:45 | disposition home or self-care (01) | DRG 470 ==
LOC: OR 08:38 → AC 15:35
PROVIDERS: Admitting Provider Orthopaedic Surgery; PCP Internal Medicine; Referring Provider Orthopaedic Surgery; Visit Provider Orthopaedic Surgery
PROC: 0SRC0JZ Replacement of Right Knee Joint with Synthetic Substitute, Open Approach (ICD-10-PCS; CPT 27447; principal; 2020-05-24 10:45)
DX: M17.11 Unilateral primary osteoarthritis, right knee (principal); E66.9 Obesity, unspecified; J44.9 Chronic obstructive pulmonary disease, unspecified; I50.9 Heart failure, unspecified; I11.0 Hypertensive heart disease with heart failure; R33.9 Retention of urine, unspecified
CPT/HCPCS: 36415; 73560; 85014; 85018; 87635; 94762; 97116; 97161; C1776; C9290; J0690; J1100; J1200; J2250; J2274; J2405; J2704; J3010

== ENCOUNTER → 2020-08-13 12:08 | Outpatient (CLI) | payer MEDICARE, OTHER, SELFPAY ==
[2020-05-24 15:23] VITALS: BMI 36.5
[2020-08-15 08:00] LABS: COVID19 Sendout Not Detected (Not Detect)
== END ==
PROVIDERS: PCP Internal Medicine; Visit Provider Physician Assistant
DX: Z11.59 Encounter for screening for other viral diseases (principal); Z01.812 Encounter for preprocedural laboratory examination
CPT/HCPCS: 87635

== ENCOUNTER 2020-08-16 05:59 | Inpatient (IN) | payer MEDICARE, OTHER, SELFPAY ==
[2020-05-24 15:23] VITALS: BMI 36.5
[2020-08-11 08:28] VITALS: BMI 34.9
[2020-08-16] VITALS (15 sets, daily range): BP systolic 107–149; BP diastolic 65–88; PULSE 54–71; RESP 12–22; TEMP 35.6–37.3; O2SAT 93–98; BMI 37.0
[2020-08-16] MEDS: LACTATED RINGERS 1,000 ML 42 ML IV (07:00)
--- NOTE | 2020-08-16 07:32 | DI.RAD.S_ITS ---
PROCEDURE: XR KNEE LT 1TO2V INDICATIONS: postop TECHNIQUE: To view(s) of the knee acquired. COMPARISON: [facility], CR, XR KNEE ARTHRITIC SERIES BI, 04/25/2020, 11:29. [facility], CR, XR KNEE RT 1TO2V, 05/25/2020, 1:56. FINDINGS: Bones: Patient is status post left knee joint arthroplasty. Hardware components are in expected positions. Visualized bony structures are intact. Soft tissues: Overlying postoperative changes are noted. IMPRESSION: Satisfactory appearance of the left total knee arthroplasty. Dictated by: Dre Boucher M.D. on 08/16/2020 at 11:13 Approved by: Dre Boucher M.D. on 08/16/2020 at 11:15
[2020-08-16] MEDS: VANCOMYCIN 1,000 MG/200 ML PIGGYBACK 200 MG IV (07:41)
--- NOTE | 2020-08-16 07:52 | SUR.PREOP ---
When ELSY Condon arrived informed her pt had no orders. Orders placed soon after. Discussed with Dr. Caro not giving the po meds ordered as it is so close to intubation, he instructed me to hold meds.
--- NOTE | 2020-08-16 07:55 | PM.PREOP ---
Pre-operative Note Interval Note History & Physical reviewed/Exam performed by Physician: Yes Changes to H&P: No
--- NOTE | 2020-08-16 08:08 | PM.HP.1 ---
History of Present Illness History of Present Illness Date Patient Seen: 08/16/20 Time Patient Seen: 07:32 Chief complaint: OPB Narrative: Fabien has a history of a right total knee arthroplasty. He has severe ongoing left knee pain. He has failed extensive conservative treatment and is brought the operating room for a left total knee arthroplasty. He has adequately recovered from his right knee arthroplasty to consider left total knee arthroplasty. Patient History Medical History Arthritis (Acute) Asbestos exposure (Acute) BPH (benign prostatic hyperplasia) (Acute) CAD (coronary artery disease) (Acute) Cellulitis (Acute) Coma (Acute) Diastolic heart failure (Acute) Easy bruisability (Acute) Former smoker (Acute) GI bleed (Acute) Gout (Acute) HLD (hyperlipidemia) (Acute) HTN (hypertension) (Acute) Lichen planus (Acute) Memory loss due to medical condition (Acute) Myocardial infarction (Acute) Nerve damage (Acute) Osteoarthritis (Acute) Perforated sigmoid colon (Acute) Venous stasis (Acute) Surgical History H/O: vasectomy (Acute) History of arthroplasty of right knee (Acute 05/24/20) History of arthroscopy of both knees (Acute) History of esophagogastroduodenoscopy (EGD) (Acute) History of total right hip arthroplasty (Acute 04/28/19) Hx of abdominal surgery (Acute) Hx of heart artery stent (Acute) Hx of left knee surgery (Acute ~1969) Hx of tonsillectomy (Acute) Status post colostomy takedown (Acute) Family & Social History Social History: household members spouse Prior Living Arrangements House Safety & Behavioral: Feels Safe in Current Yes Environment Been Physically Hurt or No Threatened By a Person Suicidal Ideation Description None Suicide Plan Description No Plan Tobacco & Substance use: Smoking Status Former smoker alcohol intake current alcohol intake frequency 0-2 drinks per day Substance Use Type does not use Meds Home Medications and Allergies Home Medications Medication Instructions Recorded Confirmed Type allopurinol 150 mg PO DAILY 04/22/19 08/16/20 History aspirin 81 mg PO QPM 04/22/19 08/16/20 History atenolol 25 mg PO BID 04/22/19 08/16/20 History furosemide 20 mg PO QAM 04/22/19 08/16/20 History omeprazole 20 mg PO DAILY 04/22/19 08/16/20 History tadalafil [Cialis] 10 mg PO DAILY 04/22/19 08/16/20 History testosterone cypionate 200 mg IM Q4W 04/22/19 08/16/20 History [Depo-Testosterone] lactase 9,000 unit PO QAC PRN 04/27/19 08/16/20 History colchicine 0.6 mg PO QD-BID PRN 05/17/20 08/16/20 History ezetimibe 10 mg PO DAILY 05/17/20 08/16/20 History oxycodone 5 mg PO Q3HR PRN #30 tab 05/25/20 08/16/20 Rx ibuprofen 400 mg PO Q4HR PRN 08/11/20 08/16/20 History Allergies Allergy/AdvReac Type Severity Reaction Status Date / Time shellfish derived Allergy Severe Anaphylaxis Verified 08/13/20 11:26 adhesive Allergy Intermediate Burning, Verified 08/13/20 11:26 it builds up Penicillins Allergy Unknown Pt does Verified 08/13/20 11:26 not remember reaction Rxrbynh-Lqk-Nql Reductase AdvReac Severe Muscle Pain Verified 08/13/20 11:26 Inhibitor codeine AdvReac Intermediate Depression Verified 08/13/20 11:26 Review of Systems Review of Systems Narrative: He notes that he had a rash on the posterior aspect of his back he saw his primary care practitioner. It is getting better they were uncertain as to the etiology of it. Has a history of gout he has not had any recent flares. Notes new no new respiratory symptoms are cardiac symptoms Exam Vital Signs (past 8 hours): - 08/16/20 07:00 Temperature 98.4 F Pulse Rate 63 Respiratory Rate 22 Blood Pressure 140/75 Pulse Oximetry 96 Oxygen Delivery Method Room Air Narrative Exam Narrative: HEENT is benign lungs are clear cor regular rate and rhythm abdomen soft and benign has a small rash on the the on his back left knee is tender to palpation along the medial joint line and lateral joint line scan a moderate left knee effusion he has acceptable tracking of his patella scans intact distally he does not have an extensor leg is stable at 0 45 and 90? Objective Labs Labs: X-rays show severe left knee osteoarthritis with valgus deformity Assessment & Plan Assessment & Plan narrative: Severe left knee osteoarthritis plan is for left total knee arthroplasty procedure alternatives risks benefits and complications discussed in detail. He understands procedure alternatives risks benefits and were planning to proceed with surgery.
[2020-08-16] MEDS: CEFAZOLIN 2 GM/100 ML FROZ.PIGGY IV ×2 (08:23→16:52)
--- NOTE | 2020-08-16 08:51 | SUR.OPER ---
Supine on padded OR bed, head on pillow, arms secured on padded arm boards at <90 degrees abduction, legs uncrossed, safety belt at thigh, tape over blanket over lower right leg. Surgical site left leg.
--- NOTE | 2020-08-16 08:53 | SUR.OPER ---
Supine on padded OR bed, head on pillow, arms secured on padded arm boards at <90 degrees abduction, legs uncrossed, safety belt at thigh, tape over blanket over right lower leg.
[2020-08-16] MEDS: BUPIVACAINE LIPOSOME 266 MG/20 ML VIAL INJ (09:09)
[2020-08-16] MEDS: TRANEXAMIC ACID 1,000 MG VIAL 2000 MG INJ (09:10)
[2020-08-16] MEDS: BUPIVACAINE 0.25% W/ EPI 30 ML VIAL 60 ML INJ (09:15)
--- NOTE | 2020-08-16 10:54 | SUR.PHASEI ---
pt arrived to PACU asleep. pt has very swollen ankles like 2+ pitting edema. to both ankles. pt states his ankles are always swollen.
[2020-08-16] MEDS: ACETAMINOPHEN 325 MG TABLET 650 MG PO ×3 (11:13→21:58)
--- NOTE | 2020-08-16 11:22 | P.OP_ITS ---
Operative Date/Time/Diagnoses Date of procedure: 08/16/20 Time of procedure: 08:01 Pre-op diagnosis: Left knee osteoarthritis Post-op diagnosis: same Procedure & Clinicians Procedure: Left total knee arthroplasty Same procedure as scheduled: Yes Indications: The patient has had progressively worsening left knee pain with radiographic changes consistent with arthritis. Non-operative management has failed and the patient has requested total knee replacement. The risks, benefits and alternatives to surgery were discussed with the patient prior to proceeding. Risks discussed included, but were not limited to, failure to relieve pain, stiffness, infection, nerve damage, deep venous thrombosis, pulmonary embolism, stroke, coma, heart attack, permanent paralysis and , as well as the potential need for eventual revision of the prosthetic. Surgeon: Shyanne Man Solar Sales Assessor: Roseanna Stewart Anesthesia Type: General and Spinal Operative Notes Findings: Severe left knee osteoarthritis, good balance and alignment Closure Type: primary Specimen(s): none sent Prosthetic devices, grafts, tissues, transplants, or devices: Man and Nephew Journey BCS 2 size 7 femur, size 6 tibia, +10 poly, 38 oval patella Applied: drain(s) Estimated Blood Loss (mL): 250 Blood products transfused: none Tourniquet time (min): 95 Procedure in detail: The patient was seen in the pre-operative area, where the patient identified the left knee as the operative site and this was marked with my initials. The patient received pre-operative antibiotics, and was taken to [facility] operating room and placed on the operative table in the supine position. After satisfactory anesthesia, a multimedia engineer out was performed. The left leg was encircled with a tourniquet about the proximal thigh, and the leg was prepared from the toes to the tourniquet with ChloroPrep in the usual fashion and draped through sterile drapes. The leg was elevated and exsanguinated with Eschmark bandage and the tourniquet inflated to [250] mmHg pressure. The knee was approached through an approximately 18 cm incision centered over the patella and carried into the knee through a medial parapatellar arthrotomy. A portion of the medial and lateral meniscus was resected. Soft tissue was carefully mobilized around the patella the patella was measured with a caliper. Bone was resected from the patella and the patellar height was reconstituted with up an appropriate sized patellar component. A cover was then placed on the patella. A small amount of additional medial and lateral meniscus was resected. The distal femur was cut at 5?. A [+2] cut was used. It looked like an appropriate distal femoral cut and the cut was made without difficulty. An extramedullary guide was used for the tibial cut. 10 mm was resected off the least affected side.The tibia was prepared. The rotation was assessed. The patient was placed in extension residual medial and lateral meniscus as well as any residual bone was carefully resected. [No] additional tibia was resected. Hemostasis was achieved especially posteriorly. Additional local was injected into the posterior capsule. The extension gap was assessed and additional releases for gap balancing were performed as necessary. It was checked with the gap classroom coordinator. The rotation was assessed and the appropriate size femoral guide was placed on the distal femur and finishing cuts were made. There is no evidence of notching. The anterior, posterior and chamfer cuts were then made. The posterior osteophytes and soft tissues were then removed. The posterior capsule was injected with part of a mixture of 60 ml 0.25% Marcaine mixed with 20 ml Exparel for post operative pain control. The remainder of this mixture was injected into the capsule and subcutaneous tissues during cement curing. The notch was finished without difficulty. The tibial and femoral components were then placed and the knee placed through a range of motion. Range of motion was [0-130], with good stability throughout the range. The trials were then removed, and the tibia was finished. The bone was prepared with pulsatile lavage, and dried with a sponge. Cement was applied and the final prosthetics placed. Excess cement was removed during and after cement curing. After confirming there was no extruded cement posteriorly, the final tibial insert was placed. The knee was copiously irrigated and the tourniquet deflated. Hemostasis was obtained with the Bovie. A drain was placed and brought out superolaterally. The capsule was closed with interrupted nonabsorbable suture. The subcutaneous layer was closed with barbed sutures, and the skin with a running 3-0 V-Lock suture and Surgical glue. An Aquacel Ag dressing was applied and the patient was taken to recovery having tolerated the procedure well. Complications: none Post-operative Condition: stable Disposition: Acute Care Plan for aftercare: The patient will be maintained on a standard total knee replacement protocol with weight bearing as tolerated. The patient will receive aspirin and sequential compression devices for DVT prophylaxis. The patient will be discharged home when safe for the home environment.
[2020-08-16] MEDS: LACTATED RINGERS 1,000 ML 100 ML IV (12:58)
[2020-08-16] MEDS: IBUPROFEN 400 MG TABLET PO ×3 (12:58→22:01)
[2020-08-16] MEDS: FUROSEMIDE 20 MG TABLET PO (13:04)
--- NOTE | 2020-08-16 13:50 | PT.IIE ---
Current Diagnoses Unilateral primary osteoarthritis, left knee (08/16/20) Surgery Performed Operation Date: 08/16/20 07:45 Actual Procedures p Total Knee Arthroplasty(Left) - Shyanne Man MD Surgical History (Last Reviewed 08/16/20 @ 11:16 by Shyanne Man MD) H/O: vasectomy (Acute) History of arthroplasty of right knee (Acute 05/24/20) History of arthroscopy of both knees (Acute) History of esophagogastroduodenoscopy (EGD) (Acute) History of total right hip arthroplasty (Acute 04/28/19) Hx of abdominal surgery (Acute) Hx of heart artery stent (Acute) Hx of left knee surgery (Acute ~1969) Hx of tonsillectomy (Acute) Status post colostomy takedown (Acute) Medical History (Last Reviewed 08/16/20 @ 11:16 by Shyanne Man MD) Arthritis (Acute) Asbestos exposure (Acute) BPH (benign prostatic hyperplasia) (Acute) CAD (coronary artery disease) (Acute) Cellulitis (Acute) Coma (Acute) Diastolic heart failure (Acute) Easy bruisability (Acute) Former smoker (Acute) GI bleed (Acute) Gout (Acute) HLD (hyperlipidemia) (Acute) HTN (hypertension) (Acute) Lichen planus (Acute) Memory loss due to medical condition (Acute) Myocardial infarction (Acute) Nerve damage (Acute) Osteoarthritis (Acute) Perforated sigmoid colon (Acute) Venous stasis (Acute) Physical Therapy Inpatient Evaluation/Re-Eval M1 PT/OT-IP Prior Functional Status Start: 08/16/20 14:40 Freq: NEEDED Status: Active Protocol: Document 08/16/20 13:50 AB (Rec: 08/16/20 15:01 [email or web address]) Medical Review Prior Functional Status Medical History Reviewed Yes Communication able to make needs known Mobility and Gait pt stated that he is modified independent with all mobilities and ambulation without AD but occasionally uses a SPC depending on pain ; uses SPC for uneven surfaces Social History Household Members spouse Living Arrangements House Number of Floors (Floors) One Floor Number of Stairs To Enter/Railing? 1 step to enter Home Environment High Toilet,Walk in Shower Home Equipment Front Wheel Walker,Straight Cane,Hand Held Shower,Long Handled Shoe Horn,Canine Deputy,Sock Aid,Grab Bars Near Toilet, Grab Bars In Shower M2 PT-IP Current Condition Start: 08/16/20 14:40 Freq: NEEDED Status: Active Protocol: Document 08/16/20 13:50 AB (Rec: 08/16/20 15:01 AB [email or web address]) Physical Therapy Current Condition Current Condition Evaluation Date 08/16/20 Treatment Diagnosis s/p L TKA; difficulty in walking Onset Date 08/16/20 Weight Bearing Status Weight Bearing Status Weight Bear as Tolerated Allowed Weight Bearing Amount (enter % LLE WBAT or #) (%) M3 PT-IP Subjective Start: 08/16/20 14:40 Freq: NEEDED Status: Active Protocol: Document 08/16/20 13:50 AB (Rec: 08/16/20 15:01 AB [email or web address]) Subjective Physical Therapy Visit Type Type Initial Evaluation Visit Start Time 13:50 Visit Stop Time 14:30 Total Visit Minutes 40 Number of AIRLINE PILOT FLIGHT INSTRUCTOR Visits 0 Physical Therapy Visit Comments Patient Comments pt is agreeable to do PT Therapy Pain Assessment Pain Present Pain Present Denied Pain M4 PT-IP Mobility and Gait Start: 08/16/20 14:40 Freq: NEEDED Status: Active Protocol: Document 08/16/20 13:50 AB (Rec: 08/16/20 15:01 AB [email or web address]) PT-Bed Mobility Assessment Supine to Sit Supine to Sit Standby Assistance PT-Transfer Assessment Sit to and From Stand Sit to and from Stand Moderate Assistance,Maximum Assistance,1 Person Assistance ,Use of Upper Extremities Equipment Transfer Assistive Device Gait Belt Orthotic/Prosthetic Devices or Brace: No Transfers Transfer Destination Chair Transfer Technique Squat Pivot Transfer Ability Level of Assist Contact Guard Assistance, Moderate Assistance,Maximum Assistance,1 Person Assistance ,Use of Upper Extremities Comments Mobility Comments checked on pt and asked if he still has numbness on LE and stated no, asked if he can move BLE and pt demonstrated. obtained pt's PLOF and home set up. BP: 136/68 pt completed supine to sit SBA . asked pt to scoot to straighten on the bed. afterwards, pt stated that PT asked him if he is still numb on LE and stated that he is still numb. PT asked why the change in response and pt stated that there is a difference between NUMB and numb. pt stated that he is not comfortable standing with his LE still numb. PT informed pt that it is ok if he does not want to stand but still has to reposition towards HOB if he just wants to lay back in bed. Pt got irritated and said why PT asked him to move one way and not back the other way. Explained to pt that he was asked to position awhile ago for standing but then now he does not want o stand and he has to reposition back to be able to lay back in bed. pt then stated that he can transfer into the chair but chair has to be closer. NAC in room to assist. positioned chair closer to pt. pt completed a partial stand pivot transfer mod/max A using chair armrest on L and side of FWW on R for support. PT stabilizing FWW and assisting pt. NAC providing CGA. positioned pt on chair. pt wanting to position in bed with LE up above his heart but pt informed that it is not possible with hospital's recliner chair. positioned pt with BLE elevated and partially reclined. pt stated that leave it be and that it should be ok. call light and table placed close to pt. pt stated that he will be ok when numbness is gone and if PT will come back. informed pt that the next PT session will be tomorrow and nursing staff will assist pt when he is ready to get back to bed. informed NAC that pt is 2 person assist. Gait Assessment Comments Gait Comments unable at this time PT-Balance Assessment Sitting Balance and Reactions Static Sitting Balance Ability Good Dynamic Sitting Balance Ability Good Standing Balance and Reactions Static Standing Balance Ability Poor Dynamic Standing Balance Ability Poor M5 PT-IP Objective Assessments Start: 08/16/20 14:40 Freq: NEEDED Status: Active Protocol: Document 08/16/20 13:50 AB (Rec: 08/16/20 15:01 [email or web address]) Orientation Orientation/Cognition Level of Alertness Alert Orientation Name,Place,Situation Safety Awareness Decreased Safety Awareness Strength Lower Extremity Strength Assessment Bilaterally Impaired Comments Strength Comments RLE: 3+/5 LLE: 4-/5 Coordination Assessment Gross Coordination Gross Coordination WNL Sensation Assessment Comments Sensation Comments c/o numbness on BLE Muscle Tone Muscle Tone WNL Yes M6 PT-IP Treatment Start: 08/16/20 14:40 Freq: NEEDED Status: Active Protocol: Document 08/16/20 13:50 AB (Rec: 08/16/20 15:01 [email or web address]) Physical Therapy Treatment Exercises Exercises Ankle Pumps Education Education Provided Precautions,Weight Bearing Status,Post-Op Packet,Safety M7 PT-IP Assessment and Plan Start: 08/16/20 14:40 Freq: NEEDED Status: Active Protocol: Document 08/16/20 13:50 AB (Rec: 08/16/20 15:01 AB [email or web address]) PT Summary Assessment and Plan Potential Rehabilitation Potential Good Status of Condition at Evaluation Evolving Summary Impairments Pain,ROM,Strength,Balance, Coordination,Sensation,Tone, Cognition,Bed Mobility, Transfers,Gait,Activity Tolerance Assessment Summary pt s/p L TKA and just had surgery this morning. pt c/o numbness on BLE and was not able to ambulate with PT but complete partial stand pivot transfer mod/max A and CGA. will require further assessment for safe d/c. pt plans to go home with spouse to assist him and stated that he is scheduled for outpt PT. Goals Bed Mobility Goal Independent Transfer Goal Independent,Front Wheeled Walker Gait Goal Independent,Front Wheel Walker Gait Distance 200 Other Goals up/down 1 step SBA using FWW Days to Meet Goals 3 Frequency of Treatment Frequency Of Treatment Twice a Day Treatment Plan Physical Therapy Treatment Plan Bed Mobility Training,Transfer Training,Gait Training, Therapeutic Exercise,Balance Retraining,Post Op Education, Discharge Planning,Hot or Cold Pack,Neuromuscular Re-ed, Coordination Retraining,Manual Therapy Recommendations To Nursing Amount of Assist Needed 2 Person Assist Discharge Recommendations PT Discharge Recommendations Home with Assistance, Outpatient PT Transportation Needs at Discharge Private Vehicle
--- NOTE | 2020-08-16 15:58 | PC.NURSE ---
Addendum entered by Elsy Cruz R.N. 08/16/20 23:24: After multiple attempts to urinate via urinal at bedside & in BR on toilet, he finally allowed nursing staff to bladder scan him. Result = 916 ml. Float RN in room to do straight cath, patient only accepting catheter after 2 more attempts at bedside & in BR for attempt to void. Cath done with 850 ml output. Addendum entered by Elsy Cruz R.N. 08/16/20 20:30: Dr Man here to see patient earlier this evening. I gave fall risk teaching to patient, he argued with me saying you are not going to stay in here & watch me pee-I won't be able to go. He is adamant about standing up at chairside to use urinal by himself. I told him about the hospital protocol, how he is reporting his left leg is still somewhat numb, yet he still refuses to let nurse stand by to make sure he does not fall. He became very upset & rude to me & the IMPROVEMENT MANAGER about the hospital protocol. He looked at me & said I remember you-you put that catheter in me where I was here last time & that is NOT HAPPENING. Speaking very directly and loud. I asked if he wanted to talk to my inspection supervisor about the hospital fall protocol, which seemed to agitate him more. I told him that I understood what he was saying. I told him that I would want to help him stand up & if stable & had good motor control of legs I would give him privacy and leave if that was what he wanted. He agreed to this plan. Patient has refused to attempt void, and refused bladder scan until just before 8pm, when he said I was standing up to try to go-and that big nikolai just barged in. (Referring to RSunita who came to work with patient on I.S.) He could not urinate. Back into recliner. He then got himself up out of recliner on his own, at some point, because when I went to check on him he was standing up by the bed holding urinal, yelling every time I try someone walks in here. I apologized, and said I would leave so he could have privacy, he yelled well I don't have to any more now. Original Note: Evening note: Fabien sitting up in recliner with legs elevated on pillows. Wide awake, oriented x 3 & to situation, VS stable. He denies nausea or pain. Reports numb from his hips to his lower legs, can feel nurse hand on bilateral feet but said they are still tingly. L knee drsg is CDI, hemovac just emptied with 120 ml sero-sang drainage, disc compressed & active. Strong pedal pulses & legs/feet are warm. Has not voided since brought from surgery, we discussed need for bladder scan to see if he is retaining urine. He reports his scrotum is completely numb. He agreed to stand up in an hour to attempt void. Fall precautions in place, pt instructed to call staff if has any needs/concerns or needs to get out of the recliner. He agrees to this plan, his spouse is visiting on window bench.
[2020-08-16] MEDS: DOCUSATE 100 MG CAPSULE PO (21:58)
[2020-08-16] MEDS: atenoloL 25 MG TABLET PO (21:58)
[2020-08-16] MEDS: ASPIRIN EC 81 MG TABLET PO (21:59)
[2020-08-17 00:27] VITALS: BP 135/74; PULSE 62; RESP 18; TEMP 36.5; O2SAT 95
[2020-08-17] MEDS: CEFAZOLIN 2 GM/100 ML FROZ.PIGGY IV (00:39)
[2020-08-17] MEDS: IBUPROFEN 400 MG TABLET PO ×5 (01:37→16:11)
--- NOTE | 2020-08-17 02:17 | PC.NURSE ---
0213 Dr. Hill notified that hemovac output @ 0210, 150cc. of bloody drainage this shift. Checked I&O on 01-12 shift Hemovac output was [address] Hill ordered to clamp HV for 2 hours. Was clamped @ 0215 and will unclamp it @ 0415. Pt. informed that his HV will be clamped for 2 hours. Will cont. POC & monitor.
[2020-08-17 04:00] VITALS: BP 130/73; PULSE 56; RESP 18; TEMP 36.7; O2SAT 96
--- NOTE | 2020-08-17 04:17 | PC.NURSE ---
0415 Hemovac unclamped. Pt. sitting on the toilet trying to void. Will monitor.
--- NOTE | 2020-08-17 05:41 | PC.NURSE ---
0515 Bladder scanned noted 703 cc per bladder scanned. In & out cath. done & noted 1500 cc clear yellow urine out. Encouraged patient to get some sleep. Did not sleep last night, trying to empty his bladder since most of the shift. He was able to void 25 cc in the urinal & 200 in the toilet. HV drained 40 cc after it was unclamped @ 0415 total HV out this shift 190 cc. Will cont. POC & monitor.
[2020-08-17 05:53] LABS: Hematocrit 47.5 % (41-53); Hemoglobin 15.7 g/dL (13.5-17.5)
--- NOTE | 2020-08-17 07:39 | PM.PN.1 ---
Subjective Subjective Date Patient Seen: 08/17/20 Time Patient Seen: 07:40 Interval history: Patient is POD#1 sp left TKA with Dr. Man. His pain has been well controlled. He has mobilized with PT. He required straight cath x2 overnight. 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 No complaints. Exam Vital Signs (past 8 hours): - 08/17/20 00:27 08/17/20 04:00 Temperature 97.7 F 98.0 F Pulse Rate 62 56 L Respiratory Rate 18 18 Blood Pressure 135/74 130/73 Pulse Oximetry 95 96 Oxygen Delivery Method Room Air Oxygen Flow Rate 0 Narrative Exam Narrative: 69 year old male resting in bed, alert and oriented. Dressing in place is CDI. Patient able to perform straight leg raise. Calves are soft bilaterally. Palpable pedal pulse. Objective Labs Result Diagrams: 08/17/20 05:25 Labs: Laboratory Results - last 24 hr 08/17/20 05:25 Hgb 15.7 Hct 47.5 Assessment & Plan Assessment & Plan narrative: Patient doing well postoperatively, does have some postoperative urinary retention likely from spinal anesthesia. He was started on Flomax this morning and was able to void appropriately prior to discharge in the afternoon. Succesfully cleared PT. He will be maintained on ASA 81mg BID for DVT prophylaxis and was given script for Oxycodone. Stable for discharge to home later today. Quality VTE Deep Vein Thrombosis/Pulmonary Embolism Present on Admission: No
[2020-08-17] MEDS: ACETAMINOPHEN 325 MG TABLET 650 MG PO ×2 (08:08→13:18)
[2020-08-17] MEDS: DOCUSATE 100 MG CAPSULE PO (08:08)
[2020-08-17] MEDS: ASPIRIN EC 81 MG TABLET PO (08:08)
[2020-08-17] MEDS: TAMSULOSIN 0.4 MG CAPSULE PO (08:09)
[2020-08-17] MEDS: atenoloL 25 MG TABLET PO (08:09)
[2020-08-17] MEDS: FUROSEMIDE 20 MG TABLET PO (08:09)
[2020-08-17] MEDS: PANTOPRAZOLE 20 MG TABLET PO (08:09)
[2020-08-17 09:12] VITALS: BP 139/65; PULSE 73; RESP 16; TEMP 36.6; O2SAT 97
--- NOTE | 2020-08-17 09:32 | PT.IPTN ---
Current Diagnoses Unilateral primary osteoarthritis, left knee (08/16/20) Surgery Performed Operation Date: 08/16/20 07:45 Actual Procedures p Total Knee Arthroplasty(Left) - Shyanne Man MD Physical Therapy Treatment Note M2 PT-IP Current Condition Start: 08/16/20 14:40 Freq: NEEDED Status: Active Protocol: Document 08/16/20 13:50 AB (Rec: 08/16/20 15:01 AB [id number]) Physical Therapy Current Condition Current Condition Evaluation Date 08/16/20 Treatment Diagnosis s/p L TKA; difficulty in walking Onset Date 08/16/20 Weight Bearing Status Weight Bearing Status Weight Bear as Tolerated Allowed Weight Bearing Amount (enter % LLE WBAT or #) (%) M3 PT-IP Subjective Start: 08/16/20 14:40 Freq: NEEDED Status: Active Protocol: Document 08/17/20 09:10 SP (Rec: 08/17/20 13:20 SP [id number]) Subjective Physical Therapy Visit Type Type Treatment Note Visit Start Time 09:10 Visit Stop Time 09:32 Total Visit Minutes 22 Notes in room, observed treatment. Number of PORTABLE MACHINE SANDER Visits 1 Physical Therapy Visit Comments Patient Comments Pt agreeable to working with PT. Patient Goals Wanting to go home with to assist him today if ready. Therapy Pain Assessment Pain When Pain Assessed During Mobility Pain Present Pain Present Pain Reported Location l knee Intensity 2 Description Pressure,Tightness,With Movement Pain Management Techniques Re-positioning,Timing of Activity with Medications M4 PT-IP Mobility and Gait Start: 08/16/20 14:40 Freq: NEEDED Status: Active Protocol: Document 08/17/20 09:10 SP (Rec: 08/17/20 13:20 SP [id number]) PT-Bed Mobility Assessment Supine to Sit Supine to Sit Independent Sit to Supine Sit to Supine Independent Scooting Scooting to Edge of Bed Independent Scooting Up and Down in Bed Independent PT-Transfer Assessment Sit to and From Stand Sit to and from Stand Standby Assistance,Use of Upper Extremities Equipment Transfer Assistive Device Gait Belt Orthotic/Prosthetic Devices or Brace: No Transfers Transfer Destination Bed Transfer Technique Pt ambulated using FWW, SPC Transfer Ability Level of Assist Standby Assistance,Contact Guard Assistance,Use of Upper Extremities Comments Mobility Comments Pt sitting at EOB when arrived WELDING LEAD BURNER was leaving, in room . Sitting<>supine I with HOB flat. Pt reported just had his L knee operated on but to be aware just had his R knee done 3 months ago and feels stable but to be aware. Sit<>stand with cue x1 for proper hand placement for safety self support SBA provided by PORTABLE MACHINE SANDER, spouse observing but on phone call. Pt ambulated around end of bed and back SBA approx 30 ft using FWW step over step gait patterning with occasional cuing for awareness of quad facilitation for knee stability with good demonstration and self feedback. Ascend/descend 1 step x4 using FWW CGA cue x1 for proper sequence Rle ascend lead, LLE descend lead with good carryover for safety of surgical LLE. Pt able to walk using SPC around room approx 60 ft CGA- SBA with noted antalgic gait and stable but recommended to use FWW for improved posture and BUE support using FWW to normalize gait with confirmation agreement. Good carryover hand placement slow descend to sit at EOB when done. Pt was interested in using shower after rested a little bit, PORTABLE MACHINE SANDER educated to press call light for WELDING LEAD BURNER when ready for SBA to bathroom with confirmation. Pt had call light and all needs inr each and in room before left. Pt was able to complete all activities needed and is able to return home with to assist as needed when medically stable. Recommending outpt PT to progress ROM and strength toward PLOF with LRAD. Gait Assessment Gait Gait Assistance Required: Standby Assistance Distance (Feet) 60 Able to Maintain Weight Bearing Status Yes During Gait Assistive Devices Assistive Device Gait Belt,Straight Cane,Front Wheeled Walker Orthotic/Prosthetic Devices or Brace: No Gait Deviations General Gait Pattern Antalgic,Decreased Stride Length,Decreased Feet Clearance,Flexed Trunk,Wide Based Gait Factors Limiting Gait Function Factors Limiting Gait Function Decreased Activity Tolerance, Decreased Strength,Limited Range of Motion,Pain Comments Gait Comments See mobility comments for details. Stair Climbing Assessment Evaluation Level of Assist On Stairs Contact Guard Assistance Devices Stair Climbing Assistive Devices Front Wheel Walker Technique/Endurance Stair Climbing Direction Ascend and Descend Stair Climbing Technique Step to Step Number of Steps Climbed 1 Stair Climbing Set # Repetitions (reps) 4 Comments Stair Climbing Comments See mobility comments for details. PT-Balance Assessment Sitting Balance and Reactions Static Sitting Balance Ability Normal Dynamic Sitting Balance Ability Normal Standing Balance and Reactions Static Standing Balance Ability Good Dynamic Standing Balance Ability Good Device Used FWW M5 PT-IP Objective Assessments Start: 08/16/20 14:40 Freq: NEEDED Status: Active Protocol: Document 08/16/20 13:50 AB (Rec: 08/16/20 15:01 AB [id number]) Orientation Orientation/Cognition Level of Alertness Alert Orientation Name,Place,Situation Safety Awareness Decreased Safety Awareness Strength Lower Extremity Strength Assessment Bilaterally Impaired Comments Strength Comments RLE: 3+/5 LLE: 4-/5 Coordination Assessment Gross Coordination Gross Coordination WNL Sensation Assessment Comments Sensation Comments c/o numbness on BLE Muscle Tone Muscle Tone WNL Yes M6 PT-IP Treatment Start: 08/16/20 14:40 Freq: NEEDED Status: Active Protocol: Document 08/17/20 09:10 SP (Rec: 08/17/20 13:20 SP [id number]) Physical Therapy Treatment Exercises Exercises Ankle Pumps,Gluteal Sets,Quad Sets,Heel Slides,Straight Leg Raises,Seated Knee Flexion/ Extension Education Education Provided Precautions,Weight Bearing Status,Safety M7 PT-IP Assessment and Plan Start: 08/16/20 14:40 Freq: NEEDED Status: Active Protocol: Document 08/17/20 09:10 SP (Rec: 08/17/20 13:20 SP [id number]) PT Summary Assessment and Plan Potential Rehabilitation Potential Good Status of Condition at Evaluation Evolving Summary Impairments Pain,ROM,Strength,Balance, Coordination,Sensation,Tone, Cognition,Bed Mobility, Transfers,Gait,Activity Tolerance Assessment Summary Pt made gains in PT today. I during bedmobility supine<> sitting, sit<>stand/ gait/ step mgt using FWW SBA, gait using SPC CGA intially then close SBA for safety, no LOB just noted antalgic gait deviation wt shifting. Pt plans and is safe to go home with spouse to assist him when medically stable and is scheduled for outpt PT. Goals Bed Mobility Goal Independent Transfer Goal Independent,Front Wheeled Walker Gait Goal Independent,Front Wheel Walker Gait Distance 200 Other Goals up/down 1 step SBA using FWW Days to Meet Goals 3 Frequency of Treatment Frequency Of Treatment Twice a Day Treatment Plan Physical Therapy Treatment Plan Bed Mobility Training,Transfer Training,Gait Training, Therapeutic Exercise,Balance Retraining,Post Op Education, Discharge Planning,Hot or Cold Pack,Neuromuscular Re-ed, Coordination Retraining,Manual Therapy Other Recommendations and Next Treatment ambulation further distance Focus LRAD, ther ex, ROM, balance. Recommendations To Nursing Amount of Assist Needed Standby Assistance Discharge Recommendations PT Discharge Recommendations Home with Assistance, Outpatient PT Transportation Needs at Discharge Private Vehicle
[2020-08-17] MEDS: allopurinoL 300 MG TABLET 150 MG PO (11:53)
[2020-08-17] MEDS: EZETIMIBE 10 MG TABLET PO (11:53)
--- NOTE | 2020-08-17 12:34 | PC.NURSE ---
: Had in and out cath this am. made aware. Has not voided since. Flomax given this am. Tried a warm shower. Has been up walking. Currently trying to void at this moment. Hopefully will be able to void.
--- NOTE | 2020-08-17 12:56 | CM.DANOTE ---
DCP/Assessment: Reviewed chart. Patient is a 69yr old male admitted to [facility] for left TKA performed on 08-16-[address] Man. PCP is Lauren Rios. Primary payor is 1)Medicare 2)[facility]. Met with patient and spouse/Malka at bedside explained CM/SW role. Patient reports that he hopes to d/c home today. RN reports that if patient voids he can go today. Patient reports that he has all needed DME and has outpatient therapy arranged. Spouse can provide transport. P: Home when medically stable. MARIYA Moore Discharge Planning/Care Management Advanced directive, confirm from FAMILY Start: 08/16/20 12:21 Freq: Q24H Status: Active Protocol: Document 08/16/20 12:21 JDG (Rec: 08/16/20 13:32 JDG [id number]) Advance Directive, confirm on record Time 11:00 Person contacted Patient Copy received No CM Discharge Assessment Start: 08/17/20 10:08 Freq: Status: Active Protocol: Document 08/17/20 12:55 KJS (Rec: 08/17/20 12:56 KJS [id number]) Discharge Planning Assessment Assigned Mind Reader MARIYA Moore Advance Directives? Yes Advance Directives on File No History Provided By Patient,Family Member,Medical Record Prior Living Arrangements House Household Members spouse Type of transporation used prior to Drives own vehicle admit Independent with ADL's Yes Is patient alert and oriented? Yes Caregiver for Another No DME Already Rented / Owned FWW / Walker Patient/Family Preference OP PT Therapy Comment Outpatient therapy on [facility]. Barriers to Discharge No Discharge Plan Home Transportation Arrangement Spouse Referrals Initiated None needed Whiteboard Updated in Patient Room with Yes name and ext. # of Mind Reader Review Status In Process Next Review Type Continued Stay Review Pre-Anesthesia Assessment Start: 08/11/20 08:28 Freq: Status: Complete Protocol: Document 08/11/20 08:28 CAB (Rec: 08/11/20 09:29 CAB [id number]) Pre-Anesthesia Assessment PAC Comment s/p RT TKA 05/24/20. 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 I've always had problems with dates , etc. per pt. Preferred Name Fabien Patient Information Reviewed Via Chart Review,Phone Assessment Comment COVID screen @ 08/13/20 Primary Care Provider Lauren Rios Seen Specialist in Last 12 Months Yes Specialist Seen Credit Clerk,Orthopedist Primary Language American Preferred Language American Roving Machine Operator Required No Height 182.88 cm Weight 117.027 kg Body Mass Index (BMI) 34.9 Hearing Ability Normal Visual Assist Glasses Dentition Type Teeth, Natural Present,Dental Implants Barriers to Learning Memory Other Aids No Hx Anesthesia Reactions No Hx Family Anesthesia Reaction No Hx Malignant Hyperthermia No Hx Blood Transfusions No Anesthesia Review Requested No Dough Panner No alcohol intake current alcohol intake frequency 0-2 drinks per day Smoking Status Former smoker how long ago did patient quit smoking Quit 2001 Substance Use Type does not use Pain Present Pain Reported Musculoskeletal Symptoms Abnormal Gait,Difficulty Walking,Joint Pain History of Falling (Recent or History of Yes ) Patient is completely paralyzed or No completely immobile Mental Status Oriented to own ability Is patient on oxygen? No Does patient have HINOJOSA/SOB No Hx Sleep Apnea No CPAP/BIPAP use not prescribed Currently Taking a Beta Nicky Yes: Atenolol Can You Climb a Flight of Stairs Without Yes SOB Hx Chest Pain Yes: r/t PR's, no current chest pain Hx SOB No Hx Syncope or Dizziness No Anti-Coagulant Therapy Yes: ASA 81mg Has a Credit Clerk Yes: Dr. Lopez-last visit 01/14/20 Hx Pacemaker/ICD No Pacemaker Rep Required? No Comment Prior cardiac records scanned to record Diet Type At Home Regular,Ketogenic,Low Carb dysphagia No Gastrointestinal Symptoms Reflux Bladder Pattern Urgency Urinary Catheter Present No Hx Urinary Self Catheterization No Diabetes No HgbA1C 5.4 Date 03/13/19 Hx Drug Resistant Organism No Presence of External or Internal Medical Yes: Cardiac stent x 3, rt hip Devices /rt knee prosthesis Have you had any close contact with No someone diagnosed with COVID-19? Marital Status Lives With spouse Prior Living Arrangements House Number of Floors (Floors) One Floor Support System Spouse Does the Patient Have Assistance After Yes Surgery Patient Discharge Plan Description Return Home Feels Safe in Current Environment Yes Been Physically Hurt or Threatened By a No Person in Current Environment Do you have thoughts of harming yourself None or others? Are you currently considering suicide? No Do you have a plan to hurt yourself or No Plan others? Do You Have Any Spiritual Beliefs That No May Affect Your HC Choices? Do You Have Any Cultural Practices That No May Affect Your HC Choices? Who Can We Speak to About Patient's Care Family, friends Identifying Code for Release of Patient Declines to issue Information Health Care Proxy/Next of Kin Malka () Health Care Proxy Emergency Contact Name Malka () Emergency Contact Advance Directives? Yes: still being worked on by border patrol officer Advance Directives on File No Power of Drilling Engineer Yes Power of Drilling Engineer Name Malka Angel Power of Drilling Engineer PAC Instructions Durable medical equipment, Medications to take/avoid, Nasal antibiotic,No ETOH/ petroleum product on skin DOS, NPO,Post-op transportation, Sturdy shoes/comfortable clothes,Do not bring valuables and remove jewelry
[2020-08-17 13:44] VITALS: BP 132/60; PULSE 71; RESP 17; TEMP 36.8; O2SAT 97
[2020-08-17] MEDS: OXYCODONE IR 5 MG TABLET PO (14:31)
--- NOTE | 2020-08-17 15:20 | PT-IP ANOTE ---
Pt declined PT tx, stated I have been walking with CNAs x2 since am tx and feeling good, ready to go home with my , just waiting for nurse change of shift to finish discharge paperwork, no further needs to discuss about therapy. Pt is ok to discharge home with when medically stable as discussed in am documentation tx and already set up with outpt PT.
[2020-08-17 15:25] VITALS: BP 130/55; PULSE 50; RESP 18; TEMP 36.1; O2SAT 97
--- NOTE | 2020-08-17 16:43 | PC.NURSE ---
discharge instruction and paperwork provided to patient. scripts given to patient. all belongings returned to patient. pt will be escorted via wheelchair with RESEARCH INVESTIGATOR.
== END 2020-08-17 16:46 | disposition home or self-care (01) | DRG 470 ==
LOC: AC 05:59
PROVIDERS: Admitting Provider Orthopaedic Surgery; PCP Internal Medicine; Referring Provider Orthopaedic Surgery; Visit Provider Orthopaedic Surgery
PROC: 0SRD0JZ Replacement of Left Knee Joint with Synthetic Substitute, Open Approach (ICD-10-PCS; CPT 27447; principal; 2020-08-16 07:45)
DX: M17.12 Unilateral primary osteoarthritis, left knee (principal); I50.30 Unspecified diastolic (congestive) heart failure; I11.0 Hypertensive heart disease with heart failure; I25.10 Atherosclerotic heart disease of native coronary artery without angina pectoris; E78.5 Hyperlipidemia, unspecified; R33.9 Retention of urine, unspecified; M10.9 Gout, unspecified; Z96.641 Presence of right artificial hip joint; Z01.812 Encounter for preprocedural laboratory examination; Z11.59 Encounter for screening for other viral diseases
CPT/HCPCS: 36415; 73560; 85014; 85018; 87635; 94760; 97116; 97162; 97530; C1776; C9290; J0690; J1100; J2250; J2274; J2405; J2704; J3010